=== PATIENT | female | born 1945 | race Caucasian/White ===

== ENCOUNTER 2018-01-04 08:15 | Emergency (ER) | payer MEDICARE, MEDICAID ==
--- NOTE | 2018-01-04 10:17 | RAD ---
LEFT WRIST THREE VIEWS: HISTORY: A 72-year-old female with a history of left wrist pain following a fall last night. FINDINGS: There is bony demineralization. Minimal degenerative and osteoarthrosis changes. No acute fracture. 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 POS: [facility]
--- NOTE | 2018-01-04 10:17 | RAD ---
LEFT KNEE FOUR VIEWS: HISTORY: A 72-year-old female with a history of left knee pain following a fall last night. COMPARISON: 09/20/2005 FINDINGS: Bone demineralization. No fracture or dislocation. Very mild degenerative changes. IMPRESSION: Mild degenerative changes with bone demineralization without acute fracture or dislocation. POS: [facility]
[2018-01-04] MEDS ORDERED: Acetaminophen 325 MG TAB ONE (10:18)
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
--- NOTE | 2018-01-04 11:37 | CT ---
NONCONTRAST CT CERVICAL SPINE: 01/04/2018 HISTORY: Trauma. The patient fell last night and now complains of neck pain and headache. COMPARISON: 09/20/2005 TECHNIQUE: Contiguous axial CT images are obtained through the cervical spine, from the skull base to the level of the T1 vertebral body. Sagittal and coronal reformatted images are provided. FINDINGS: There is normal alignment of the cervical spine. No fracture or subluxation is seen. Multilevel fac et degenerative changes are seen. Facet degenerative changes were also noted on the prior study that do appear mildly progressed. Prevertebral soft tissues are within normal limits. Vascular calcifications are seen in the carotid arteries. There is an 8 mm hypodense nodule in the right lobe of the thyroid gland. This was not seen on the s tudy in 2005. There is symmetric biapical pleural scarring present. IMPRESSION: 1. Hypodense nodule, right lobe of thyroid gland. Nonemergent thyroid ultrasound is suggested for f urther evaluation. 2. Prominent multilevel facet hypertrophic changes in the cervical spine, but no fracture or subluxa tion is seen. There is fusion of the left-sided facets at the C2-C3 level. POS: [facility]
== END 2018-01-04 10:31 | disposition home or self-care (01) ==
LOC: ERS 08:15
DX: S63.502A Unspecified sprain of left wrist, initial encounter (principal); S60.212A Contusion of left wrist, initial encounter; I10 Essential (primary) hypertension; F41.9 Anxiety disorder, unspecified; F32.9 Major depressive disorder, single episode, unspecified; F17.210 Nicotine dependence, cigarettes, uncomplicated; Z79.899 Other long term (current) drug therapy; W19.XXXA Unspecified fall, initial encounter; Y92.512 Supermarket, store or market as the place of occurrence of the external cause
CPT/HCPCS: 70450; 72125

== ENCOUNTER 2018-01-18 16:33 | Inpatient (IN) | payer MEDICARE, MEDICAID ==
[~2018-01-18 16:33] MED LIST: ISOVUE-370 76%-LOCM 1 ML ONE; Iopamidol 370 76% 50 ML VIAL FS ONE
[2018-01-18 17:32] LABS: #Basophils 0.1 thou/uL (0.0-0.2); #Eosinphils 0.2 thou/uL (0.0-0.7); #Lymphocytes 1.5 thou/uL (1.20-3.40); #Monocytes 0.7 thou/uL (0.11-0.59); #Neutrophils 8.6 thou/uL (1.40-6.50); %Basophils 0.5 % (0.0-1.0); %Eosinophils 1.9 % (0.0-10.0); %Lymphocytes 13.7 % (21.0-51.0); %Monocytes 6.6 % (0.0-10.0); %Neutrophils 77.3 % (42.0-75.0); Mean Corpuscular Hemoglobin 31.9 pg (27.0-31.0); Mean Corpuscular Volume 91.3 fL (78.0-98.0); Mean Platelet Volume 7.5 fL (7.4-10.4); Platelet Count 408 thou/uL (130-400); RBC Distribution Width 12.4 % (11.5-14.5); Red Blood Cell (RBC) Count 4.08 mill/uL (4.20-5.40); White Blood Cell (WBC) Count 11.1 thou/uL (4.8-10.8)
[2018-01-18 17:46] LABS: ALT (SGPT) 15 U/L (8-55); AST (SGOT) 29 U/L (5-34); Albumin 4.2 g/dL (3.4-4.8); Alkaline Phosphatase 94 U/L (40-150); Anion Gap 18 mmol/L (10-20); BUN (Urea Nitrogen) 25 mg/dL (9.8-20.1); Bilirubin, Total 0.7 mg/dL (0.2-1.2); Calc. Creatinine Clearance 0 mL/min (70-130); Calcium 10.2 mg/dL (7.8-10.44); Carbon Dioxide 22 mmol/L (23-31); Chloride 103 mmol/L (98-107); Estimated GFR-MDRD 72; Globulin 3.4 g/dL (2.4-3.5); Glucose 107 mg/dL (83-110); Lipase 16 U/L (8-78); Protein, Total 7.6 g/dL (6.0-8.3); Sodium 139 mmol/L (136-145)
[2018-01-18] MEDS ORDERED: Ondansetron HCl/PF 4 MG/2 ML Vial ONE (17:56)
[2018-01-18] MEDS ORDERED: Fentanyl 100 MCG/2 ML VIAL ONE ×2 (17:56→21:22)
--- NOTE | 2018-01-18 18:18 | RAD ---
FRONTAL RADIOGRAPH CHEST PORTABLE UPRIGHT: 01/18/18 COMPARISON: 10/16/15 HISTORY: Abdominal pain and constipation. FINDINGS: There is no pneumothorax, pleural fluid, lobar consolidation, or alveolar edema. Heart and mediastina l contours are stable. There is pulmonary hyperinflation with increased linear interstitial density n oted in both lungs. Findings suggesting air trapping and emphysematous changes suspected in the upper lobes suspicious for COPD in the proper clinical setting. Two questionable small nodules are seen overlying the right lung base measuring up to 5-6 mm. IMPRESSION: Incidental findings as detailed above. No lobar consolidation or alveolar edema. Interstitial promine nce and pulmonary hyperinflation suggests COPD in the proper clinical setting. POS: [facility]
--- NOTE | 2018-01-18 19:24 | CT ---
CT OF THE ABDOMEN AND PELVIS 01/18/18 COMPARISON: 12/15/14 HISTORY: Abdominal pain, history of diverticulitis, history of colon cancer. TECHNIQUE: Serial axial CT imaging is obtained at 5 mm intervals from lung bases through pubic symphysis with in travenous and/or oral contrast. Coronal reformatted imaging obtained. FINDINGS: Imaged lung bases demonstrate two new pulmonary nodules within the right lower lobe, measuring 1.1 cm anteriorly on image 2 and 8 mm laterally on image 4. There is no free intraperitoneal air. There is trace pericardial fluid. The gallbladder and the liver are unremarkable as is the spleen. The pancreas and adrenal glands are grossly unremarkable. There is bilateral renal cortical thinning. Punctate calcification in the upper pole of the left kidn ey may represent vascular calcification or renal stone disease. There are subcentimeter renal hypoden sities bilaterally, too small to characterize. There is a suture line associated with the colon in the mid right abdomen suggesting prior right melissa colectomy. There are dilated proximal fluid filled small bowel loops which extend from the abdomen in to the pelvis. There is a transition point within the midline lower anterior pelvis to decompress sma ll bowel suggesting small bowel obstruction. There is a soft tissue nodule within the mesentery on image 67 measuring 1.1 cm. There is an addition al probable nodule within the lower midline pelvic mesentery on image 73 measuring 1.4 cm. There is a mesenteric mass in the left upper quadrant on image 31 measuring 1.8 cm and there is a mesenteric ma ss on image 43 within the anterior mid abdomen to the left of midline measuring 3 cm. These mesenteri c lesions are highly concerning for mesenteric metastatic disease. There is extensive atherosclerotic calcification of the abdominal aorta and its branches. No retroper itoneal lymphadenopathy. Review of the osseous structures demonstrate diffuse demineralization. No di screte lytic or blastic bone lesion. There is an old fracture involving the inferior pubic ramus ante riorly on the right. There is multilevel lower lumbar spine facet hypertrophic change. IMPRESSION: Findings suggesting a high grade small bowel obstruction with transition point within the lower anter ior pelvis. There are mesenteric lesions mentioned above, concerning for metastatic disease. New pulm onary nodules in the right lower lobe are nonspecific but may also represent interval development of metastatic disease. Dr. Harris made aware 7:10 p.m., 01/18/18. Code CR POS: [facility]
[2018-01-18] MEDS ORDERED: Midazolam HCl 2 mg/2 ml Vial ONE (19:33)
--- NOTE | 2018-01-18 21:20 | RAD ---
FRONTAL RADIOGRAPH ABDOMEN 01/18/18 HISTORY: Evaluate nasogastric tube. FINDINGS: The patient is imaged in the supine position, limiting assessment for free intraperitoneal air. The l ower abdomen and pelvis are not imaged. There is contrast media within bilateral renal collecting sys tems. There is a nasogastric tube extending into the left upper abdomen, likely in the region of the proximal gastric body. Partially imaged dilated small bowel noted in left upper quadrant. IMPRESSION: Nasogastric tube as detailed above. POS: [facility]
[2018-01-18] MEDS ORDERED: Ondansetron HCl/PF 4 MG/2 ML Vial IVP PRN (21:26)
[2018-01-18] MEDS ORDERED: hydrALAZINE 20 MG/ML VIAL SLOW IVP PRN (21:26)
[2018-01-18] MEDS ORDERED: Mag-Al 1200 mg/1200 mg/30 ML UDCUP PO PRN (21:26)
[2018-01-18] MEDS ORDERED: Nitroglycerin 0.4 MG TAB (25 Tab Bottle) SL PRN (21:26)
[2018-01-18] MEDS ORDERED: Ketorolac Tromethamine 30 MG/ML VIAL IVP PRN (21:29)
[2018-01-18] MEDS: Sodium Chloride 0.9% 1,000 ML IV SCH (22:30)
[2018-01-18 22:44] VITALS: BMI 17.9
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
[2018-01-19 06:24] LABS: #Eosinphils 0.1 thou/uL (0.0-0.7); #Lymphocytes 1.1 thou/uL (1.20-3.40); #Monocytes 0.7 thou/uL (0.11-0.59); #Neutrophils 5.3 thou/uL (1.40-6.50); %Basophils 0.3 % (0.0-1.0); %Eosinophils 1.1 % (0.0-10.0); %Lymphocytes 15.3 % (21.0-51.0); %Monocytes 9.5 % (0.0-10.0); %Neutrophils 73.7 % (42.0-75.0); Hemoglobin 11.3 g/dL (12.0-16.0); Mean Corpuscular HGB CONC 34.8 g/dL (32.0-36.0); Mean Corpuscular Hemoglobin 31.7 pg (27.0-31.0); Mean Corpuscular Volume 91.1 fL (78.0-98.0); Mean Platelet Volume 7.6 fL (7.4-10.4); Platelet Count 323 thou/uL (130-400); RBC Distribution Width 12.2 % (11.5-14.5); Red Blood Cell (RBC) Count 3.57 mill/uL (4.20-5.40); White Blood Cell (WBC) Count 7.1 thou/uL (4.8-10.8)
[2018-01-19 06:39] LABS: Anion Gap 12 mmol/L (10-20); BUN (Urea Nitrogen) 22 mg/dL (9.8-20.1); Calc. Creatinine Clearance 68 mL/min (70-130); Calcium 8.7 mg/dL (7.8-10.44); Carbon Dioxide 25 mmol/L (23-31); Chloride 105 mmol/L (98-107); Estimated GFR-MDRD 88; Glucose 104 mg/dL (83-110); Potassium 3.6 mmol/L (3.5-5.1); Sodium 138 mmol/L (136-145)
[2018-01-19] MEDS: Acetaminophen 650 MG Suppository PR PRN ×2 (07:44→13:02)
[2018-01-19] MEDS ORDERED: Prevnar 13-Val Conj/PF 0.5 ML SYRINGE IM ONE (09:00)
[2018-01-19] MEDS: Ondansetron HCl/PF 4 MG/2 ML Vial IVP PRN (09:32)
[2018-01-19] MEDS: Enoxaparin Sodium 40 MG/0.4 ML SYRINGE SC SCH (09:36)
[2018-01-19] MEDS: Famotidine/PF 20 mg/2ml Vial SLOW IVP SCH ×2 (09:36→21:12)
[2018-01-19] MEDS: Calcium Carbonate 500 MG ChewTAB PO PRN (13:03)
[2018-01-19] MEDS ORDERED: MD-Gastroview 120 ML BOT ONE (15:07)
--- NOTE | 2018-01-19 15:51 | PDOC.PN ---
- Subjective Encounter Start Date: 01/19/18 Encounter Start Time: 08:00 Pt seen for followup re: bowel obstruction. Denies chest pain. Nausea+, vomiting+. No fevers or chills. - Objective MAR Reviewed: Yes Vital Signs & Weight: Vital Signs (12 hours) Temp Pulse Resp BP Pulse Ox 01/19/18 10:13 98.5 F 81 18 133/65 94 L 01/19/18 04:15 99.3 F 87 20 160/70 H 97 Weight Weight 121 lb 6 oz I&O: 01/18/18 01/19/18 01/20/18 06:59 06:59 06:59 Intake Total 637.5 Output Total 550 Balance 87.5 Result Diagrams: 01/19/18 05:54 01/19/18 05:54 Additional Labs: Labs reviewed by me Phys Exam - Physical Examination appears frail HEENT: sclera anicteric, oral pharynx no lesions, 2+ tonsils dry mucosae Neck: no nodes, no JVD, supple, full ROM Respiratory: no wheezing, no rales, no rhonchi, clear to auscultation bilateral Cardiovascular: RRR, no rub S1, S2 Gastrointestinal: soft, no distention mild diffuse tenderness, no guarding or rigidity; sluggish bowel sounds Neurological: moves all 4 limbs Psychiatric: normal affect Dx/Plan (1) Bowel obstruction Code(s): K56.609 - UNSP INTESTNL OBST, UNSP TO PARTIAL VERSUS COMPLETE OBST Status: Acute Comment: await SBFT series, continue NG to suction as needed. (2) HTN (hypertension) Code(s): I10 - ESSENTIAL (PRIMARY) HYPERTENSION Status: Chronic Comment: Monitor vital signs, titrate antihypertensives as needed. PRN IV hydralazine while pt is NPO. (3) Tobacco abuse Code(s): Z72.0 - TOBACCO USE Status: Chronic Comment: start nicotine replacement therapy (4) Pulmonary nodules Status: Chronic Comment: await oncology opinion, suspicious for mets from colon CA (5) H/O malignant neoplasm of colon Code(s): Z85.038 - PERSONAL HISTORY OF MALIGNANT NEOPLASM OF LARGE INTESTINE Status: Chronic - Plan * . Review of Systems - Review of Systems Constitutional: negative: fever, chills, sweats, weakness, malaise Respiratory: negative: Cough, Shortness of Breath, SOB with Excertion, Pleuritic Pain, Wheezing Cardiovascular: negative: chest pain, palpitations, orthopnea, paroxysmal nocturnal dyspnea, edema, light headedness Gastrointestinal: Nausea, Vomiting, Abdominal Pain, Constipation. negative: Diarrhea, Melena, Hematochezia Genitourinary: negative: Dysuria, Frequency, Incontinence, Hematuria, Retention Skin: negative: Rash, Lesions, Thaddeus, Bruising - Medications/Allergies Allergies/Adverse Reactions: Allergies Allergy/AdvReac Type Severity Reaction Status Date / Time codeine Allergy Severe Nausea Verified 02/28/16 10:12 celiac Allergy "can't eat Uncoded 02/28/16 10:12 gluten" Medications: Current Medications Acetaminophen (Tylenol) 650 mg ND Q4H PRN PRN Reason: Headache/Fever or Pain Last Admin: 01/19/18 13:02 Dose: 650 mg Acetaminophen (Tylenol) 650 mg PO Q4H PRN PRN Reason: Headache/Fever or Pain Al Hydroxide/Mg Hydroxide (Maalox) 30 ml PO Q6H PRN PRN Reason: Heartburn or Indigestion Calcium Carbonate (Tums) 1,000 mg PO Q4H PRN PRN Reason: Heartburn or Indigestion Last Admin: 01/19/18 13:03 Dose: 1,000 mg Enoxaparin Sodium (Lovenox) 40 mg SC 0900 [facility] Last Admin: 01/19/18 09:36 Dose: 40 mg Famotidine (Pepcid) 20 mg SLOW IVP Q12HR [facility] Last Admin: 01/19/18 09:36 Dose: 20 mg Hydralazine HCl (Apresoline) 10 mg SLOW IVP Q4H PRN PRN Reason: Systolic BP > 170 Sodium Chloride (Normal Saline 0.9%) 1,000 mls @ 75 mls/hr IV .[id number] [facility] Last Admin: 01/18/18 22:30 Dose: 1,000 mls Morphine Sulfate (Morphine) 2 mg SLOW IVP Q4H PRN PRN Reason: Moderate Pain (4-6) Last Admin: 01/19/18 13:46 Dose: 2 mg Nitroglycerin (Nitrostat) 0.4 mg SL Q5MIN PRN PRN Reason: Chest Pain Ondansetron HCl (Zofran) 4 mg IVP Q6H PRN PRN Reason: Nausea/Vomiting Last Admin: 01/19/18 09:32 Dose: 4 mg Sodium Chloride (Flush - Normal Saline) 10 ml IVF Q12HR [facility] Last Admin: 01/19/18 09:38 Dose: Not Given Sodium Chloride (Flush - Normal Saline) 10 ml IVF PRN PRN PRN Reason: Saline Flush Last Admin: 01/19/18 04:59 Dose: 10 ml
[2018-01-19] MEDS: Sodium Chloride 0.9% 1,000 ML IV SCH (17:00)
[2018-01-19] MEDS: Nicotine 14 MG PATCH TD SCH (17:45)
--- NOTE | 2018-01-19 18:13 | RAD ---
SMALL BOWEL FOLLOW THROUGH: Date: 01-19-18 Comparison: None. History: Small bowel obstruction. FINDINGS: Senior Telecommunications Engineer imaging demonstrates small volume residual contrast media within the colon. Nasogastric tube ex tends into left upper quadrant with side port near the gastroesophageal junction. Following the admin istration of contrast media into the patient's nasogastric tube, immediate imaging demonstrates contr ast media within the stomach and nondilated proximal small bowel. Similar findings are seen at 15 and 30 minutes. At 45 minutes and 1 hour, dilated distal small bowel loops are noted, measuring up to 3. 8 cm, extending into the midline pelvis. Latera imaging at 4 hours demonstrates contrast media extend ing into distal nondilated small bowel loops. Contrast media fills the colon by 6 hours. IMPRESSION: Findings suggesting a partial small bowel obstruction with transition point in the lower pelvis. Keyon mmend KUB on 01-20-18 for follow up. POS: [facility]
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
[2018-01-19] MEDS: Acetaminophen 325 MG TAB PO PRN (22:33)
[2018-01-20] MEDS: Acetaminophen 325 MG TAB PO PRN ×2 (02:05→14:02)
[2018-01-20] MEDS: Ondansetron HCl/PF 4 MG/2 ML Vial IVP PRN (06:19)
[2018-01-20] MEDS: Sodium Chloride 0.9% 1,000 ML IV SCH ×2 (07:42→16:47)
[2018-01-20] MEDS: Famotidine/PF 20 mg/2ml Vial SLOW IVP SCH ×2 (09:32→20:50)
[2018-01-20] MEDS: Enoxaparin Sodium 40 MG/0.4 ML SYRINGE SC SCH (09:32)
[2018-01-20] MEDS: traMADol HCl 50 MG TAB PO PRN ×3 (10:25→23:00)
--- NOTE | 2018-01-20 15:51 | CON ---
DATE OF CONSULTATION: 01/20/2018 REASON FOR CONSULTATION: Colon cancer. HISTORY OF PRESENT ILLNESS: Ms. Salvador is a 72-year-old female who was diagnosed with stage IIIB moderately differentiated adenocarcinoma of the ascending colon in 10/2014. She underwent a ri ght hemicolectomy with ileocolic anastomosis, sigmoid colon resection and colorectal anastomosis. Re section margins were free and 19 lymph nodes were negative. She began the [facility] regimen with l ow dose leucovorin and 5-FU. Unfortunately, it was discontinued after the first cycle of chemotherap y due to poor tolerance. She returned approximately 1 month later and was still weak and fatigued. Her weight was less than her prechemotherapy weight, so the patient elected not to continue chemo. S he has not been seen since that time. Over the past 2-3 days, she has been having lower abdominal pa in. She presented to the emergency room, a CT of the abdomen and pelvis showed 2 new pulmonary nodul es within the right lower lobe measuring 1.1 and 8 mm. She had a soft tissue nodule in the mesentery measuring 1.1 cm. There was another in the pelvic mesentery measuring 1.4 cm. There is a mesenteri c mass of the left upper quadrant measuring 1.8 cm and there was an anterior mid abdominal mesenteric mass measuring 3 cm. They were all highly suspicious for metastatic disease. She also had evidence of a high grade small-bowel obstruction. She had an NG tube placed. She did have a small bowel x-r ay with contrast. She also had 4 bowel movements after this procedure. The NG tube was removed and she is now on clear liquids. She is having pain at this time, but it was just medicated with pain me dicine. PAST MEDICAL HISTORY: 1. Stage IIIB colon cancer, status post hemicolectomy. 2. Gastroesophageal reflux. 3. Hypertension. 4. Celiac disease. PAST SURGICAL HISTORY: Hemicolectomy. ALLERGIES: VICODIN. HOME MEDICATIONS: 1. Amlodipine 5 mg daily. 2. Citalopram 10 mg daily. 3. Prilosec 40 mg daily. 4. MVI daily. FAMILY HISTORY: Daughter had colon cancer at the age of 55. Mom had breast cancer. SOCIAL HISTORY: Single, lives with her sister. Smokes half-a-pack of cigarettes daily. No alcohol or illicit drug use. REVIEW OF SYSTEMS: Twelve point review of systems is negative except for noted in HPI. PHYSICAL EXAMINATION: VITAL SIGNS: Temperature 99.1, pulse is 84, respiratory rate 18, blood pressure is 154/67. She is 9 7% on room air. GENERAL: Well-developed, well-nourished female in no acute distress. HEENT: Normocephalic, atraumatic. Pupils equal and reactive to light. She has poor dentition. She has no teeth. NECK: Supple. CARDIOVASCULAR: Regular rate and rhythm. LUNGS: Clear. ABDOMEN: Soft, nontender. Bowel sounds are hypoactive. EXTREMITIES: No clubbing, cyanosis or edema. SKIN: No rash. HEMATOLOGIC: No petechia or purpura. NEUROLOGIC: Nonfocal. PSYCHIATRIC: The patient is alert and oriented and appropriate. PERTINENT LABORATORY DATA AND X-RAYS: Current WBCs are 7.1, hemoglobin 11.3, hematocrit 32.5, platel et count 323,000. She has got 74% neutrophils, 15% lymphocytes. Sodium is 138, potassium 3.6, chlor michael 105, CO2 is 25, BUN is 22, creatinine 0.66, calcium is 8.7, bilirubin is 0.7, AST is 29, ALT is 1 5, alkaline phosphatase is 94. Serum total protein is 7.6, albumin 4.2, globulin 3.4, lipase is 16. ASSESSMENT: 1. Partial small-bowel obstruction, improving. 2. History of stage IIIB colon cancer with intolerance to chemo. 3. New mesenteric mass concerning for metastatic disease. DISCUSSION: The results of the CT scan were discussed with patient. She understands that this is li tiffani metastatic disease. She was intolerant to chemo in the past and is hesitant to have any again. She does agree to meet in the office with Dr. Mitchell to discuss further options. Thank you for the consult. We will follow her remotely.
[2018-01-20] MEDS: Nicotine 14 MG PATCH TD SCH (16:45)
--- NOTE | 2018-01-20 16:52 | PDOC.PN ---
- Subjective Encounter Start Date: 01/20/18 Encounter Start Time: 10:20 Pt seen for followup re: bowel obstruction. Had bowel movements yesterday after SBFT. Abdo pain still +, tolerating clear fluid diet. - Objective MAR Reviewed: Yes Vital Signs & Weight: Vital Signs (12 hours) Temp Pulse Pulse Pulse Resp BP BP 01/20/18 11:57 99.1 F 84 18 01/20/18 09:28 84 78 152/70 H 164/68 H 01/20/18 07:40 99.1 F 89 18 BP Pulse Ox 01/20/18 11:57 154/67 H 97 01/20/18 09:28 01/20/18 07:40 144/67 H 99 Weight Admit Weight 121 lb 6 oz Weight 121 lb 6 oz I&O: 01/19/18 01/20/18 01/21/18 06:59 06:59 06:59 Intake Total 637.5 2055 1200 Output Total 550 4 Balance 87.5 2051 1200 Result Diagrams: 01/19/18 05:54 01/19/18 05:54 Additional Labs: labs reviewed by me Phys Exam - Physical Examination Constitutional: NAD HEENT: moist MMs, sclera anicteric, oral pharynx no lesions, 2+ tonsils Neck: no nodes, no JVD, supple, full ROM Respiratory: no wheezing, no rales, no rhonchi, clear to auscultation bilateral Cardiovascular: RRR, no rub S1, s2 Gastrointestinal: soft, non-tender, no distention, positive bowel sounds Neurological: moves all 4 limbs Psychiatric: normal affect, A&O x 3 Dx/Plan (1) Bowel obstruction Code(s): K56.609 - UNSP INTESTNL OBST, UNSP TO PARTIAL VERSUS COMPLETE OBST Status: Acute Comment: Improving, on clear fluid diet (2) HTN (hypertension) Code(s): I10 - ESSENTIAL (PRIMARY) HYPERTENSION Status: Chronic Comment: resume home meds, continue PRN IV hydralazine (3) Tobacco abuse Code(s): Z72.0 - TOBACCO USE Status: Chronic Comment: patient declined nicotine replacement therapy (4) Pulmonary nodules Status: Chronic Comment: await oncology opinion (5) H/O malignant neoplasm of colon Code(s): Z85.038 - PERSONAL HISTORY OF MALIGNANT NEOPLASM OF LARGE INTESTINE Status: Chronic - Plan * . Review of Systems - Review of Systems Constitutional: negative: fever, chills, sweats, weakness, malaise Respiratory: negative: Cough, Shortness of Breath, SOB with Excertion, Pleuritic Pain, Wheezing Cardiovascular: negative: chest pain, palpitations, orthopnea, paroxysmal nocturnal dyspnea, edema, light headedness Gastrointestinal: Abdominal Pain. negative: Nausea, Vomiting, Diarrhea, Constipation, Melena, Hematochezia Genitourinary: negative: Dysuria, Frequency, Incontinence, Hematuria, Retention Skin: negative: Rash, Lesions, Thaddeus, Bruising - Medications/Allergies Allergies/Adverse Reactions: Allergies Allergy/AdvReac Type Severity Reaction Status Date / Time codeine Allergy Severe Nausea Verified 02/28/16 10:12 celiac Allergy "can't eat Uncoded 02/28/16 10:12 gluten" Medications: Current Medications Acetaminophen (Tylenol) 650 mg HI Q4H PRN PRN Reason: Headache/Fever or Pain Last Admin: 01/19/18 13:02 Dose: 650 mg Acetaminophen (Tylenol) 650 mg PO Q4H PRN PRN Reason: Headache/Fever or Pain Last Admin: 01/20/18 14:02 Dose: 650 mg Al Hydroxide/Mg Hydroxide (Maalox) 30 ml PO Q6H PRN PRN Reason: Heartburn or Indigestion Calcium Carbonate (Tums) 1,000 mg PO Q4H PRN PRN Reason: Heartburn or Indigestion Last Admin: 01/19/18 13:03 Dose: 1,000 mg Enoxaparin Sodium (Lovenox) 40 mg SC 0900 [facility] Last Admin: 01/20/18 09:32 Dose: 40 mg Famotidine (Pepcid) 20 mg SLOW IVP Q12HR [facility] Last Admin: 01/20/18 09:32 Dose: 20 mg Hydralazine HCl (Apresoline) 10 mg SLOW IVP Q4H PRN PRN Reason: Systolic BP > 170 Sodium Chloride (Normal Saline 0.9%) 1,000 mls @ 75 mls/hr IV .[id number] [facility] Last Admin: 01/20/18 16:47 Dose: 1,000 mls Morphine Sulfate (Morphine) 2 mg SLOW IVP Q4H PRN PRN Reason: Moderate Pain (4-6) Last Admin: 01/20/18 06:15 Dose: 2 mg Nicotine (Nicoderm Patch) 14 mg TD 1600 [facility] Last Admin: 01/20/18 16:45 Dose: Not Given Nitroglycerin (Nitrostat) 0.4 mg SL Q5MIN PRN PRN Reason: Chest Pain Ondansetron HCl (Zofran) 4 mg IVP Q6H PRN PRN Reason: Nausea/Vomiting Last Admin: 01/20/18 06:19 Dose: 4 mg Sodium Chloride (Flush - Normal Saline) 10 ml IVF Q12HR [facility] Last Admin: 01/20/18 09:40 Dose: 10 ml Sodium Chloride (Flush - Normal Saline) 10 ml IVF PRN PRN PRN Reason: Saline Flush Last Admin: 01/19/18 04:59 Dose: 10 ml Tramadol HCl (Ultram) 50 mg PO Q6H PRN PRN Reason: Pain Last Admin: 01/20/18 16:43 Dose: 50 mg
[2018-01-20] MEDS ORDERED: Promethazine HCl 25 MG/ML VIAL IM/IV PRN (16:56)
[2018-01-20] MEDS: Escitalopram Oxalate 10 mg Tablet PO SCH (20:50)
--- NOTE | 2018-01-21 02:50 | PRG ---
DATE OF SERVICE: 01/20/2018 SUBJECTIVE: Ms. Salvador is a patient we are seeing in consultation for suspected small-bowel obstructi on. Yesterday, she underwent an x-ray with a small bowel follow through, she has had multiple formed bowel movements after that, she is remaining afebrile and she tolerated a clear liquid diet overnigh t. This morning, she does complain of vague abdominal pain, but her exam was essentially unremarkabl e. The patient does report passing gas and has no nausea or vomiting. PHYSICAL EXAMINATION: VITAL SIGNS: Temperature 99.1, heart rate 89, blood pressure 144/67, respirations 18, oxygen saturat ion 99% on room air. GENERAL: The patient is resting in bed. She appears somewhat in discomfort when talking with the pa tient and she calms down. She appears much better, indicating there may be an anxiety component to t hink this morning. ABDOMEN: Again is soft, flat, nontender without peritoneal signs and has active bowel sounds. LABORATORY FINDINGS: White blood cell count 7.1, hemoglobin 11.3, hematocrit 32.5, platelets 323. S odium 138, potassium 3.6, chloride 105, CO2 of 25, BUN 22, creatinine 0.66, glucose 104. ASSESSMENT AND PLAN: 1. Partial small-bowel obstruction, resolved. 2. Abdominal pain. Plan will be to continue supportive care per guidance of the primary team and I believe they have augusto orozco consulted Oncology who the patient has already been under the care of . At this time, ther e are no surgical recommendations and we will sign off. We may be reconsulted as needed. The evalua tion and examination were done with Dr. Machuca this morning during rounds.
[2018-01-21] MEDS: traMADol HCl 50 MG TAB PO PRN ×2 (05:26→20:43)
[2018-01-21] MEDS: Sodium Chloride 0.9% 1,000 ML IV SCH (05:34)
[2018-01-21 06:26] LABS: #Eosinphils 0.2 thou/uL (0.0-0.7); #Lymphocytes 1.1 thou/uL (1.20-3.40); #Monocytes 0.6 thou/uL (0.11-0.59); #Neutrophils 2.2 thou/uL (1.40-6.50); %Basophils 0.6 % (0.0-1.0); %Lymphocytes 27.7 % (21.0-51.0); %Monocytes 14.6 % (0.0-10.0); %Neutrophils 53.1 % (42.0-75.0); Hemoglobin 10.7 g/dL (12.0-16.0); Mean Corpuscular HGB CONC 34.4 g/dL (32.0-36.0); Mean Corpuscular Hemoglobin 31.7 pg (27.0-31.0); Mean Corpuscular Volume 92.1 fL (78.0-98.0); Mean Platelet Volume 7.6 fL (7.4-10.4); Platelet Count 313 thou/uL (130-400); RBC Distribution Width 12.2 % (11.5-14.5); Red Blood Cell (RBC) Count 3.37 mill/uL (4.20-5.40); White Blood Cell (WBC) Count 4.1 thou/uL (4.8-10.8)
[2018-01-21 06:37] LABS: Anion Gap 11 mmol/L (10-20); BUN (Urea Nitrogen) 26 mg/dL (9.8-20.1); Calc. Creatinine Clearance 82 mL/min (70-130); Carbon Dioxide 22 mmol/L (23-31); Chloride 109 mmol/L (98-107); Estimated GFR-MDRD Greater than 90; Glucose 87 mg/dL (83-110); Sodium 139 mmol/L (136-145)
[2018-01-21] MEDS: Amlodipine 5 MG TAB PO SCH (08:31)
[2018-01-21] MEDS: Enoxaparin Sodium 40 MG/0.4 ML SYRINGE SC SCH (08:31)
[2018-01-21] MEDS: Multivitamin W/ Minerals 1 TAB PO SCH (08:31)
[2018-01-21] MEDS ORDERED: Ketorolac Tromethamine 30 MG/ML VIAL IVP SCH (09:15)
[2018-01-21] MEDS: Potassium Chloride 20 MEQ TAB PO SCH ×2 (13:28→17:04)
[2018-01-21] MEDS: Ketorolac Tromethamine 10 MG TAB PO SCH ×3 (13:32→23:33)
--- NOTE | 2018-01-21 15:18 | PDOC.PN ---
- Subjective Encounter Start Date: 01/21/18 Encounter Start Time: 12:00 Pt seen for followup re: bowel obstruction. Denies chest pain, shortness of breath, fevers or chills. has abdo pain. - Objective MAR Reviewed: Yes Vital Signs & Weight: Vital Signs (12 hours) Temp Pulse Resp BP Pulse Ox 01/21/18 11:38 98.6 F 72 16 123/55 L 97 01/21/18 08:00 98.6 F 72 16 01/21/18 07:21 98.7 F 77 16 135/72 94 L Weight Admit Weight 121 lb 6 oz Weight 121 lb 6 oz I&O: 01/20/18 01/21/18 01/22/18 06:59 06:59 06:59 Intake Total 2054 3559 Output Total Balance 2050 3559 Result Diagrams: 01/21/18 05:59 01/21/18 05:59 Additional Labs: labs reviewed by me Phys Exam - Physical Examination Constitutional: NAD HEENT: moist MMs Neck: supple Respiratory: clear to auscultation bilateral Cardiovascular: RRR Gastrointestinal: soft Neurological: moves all 4 limbs Psychiatric: normal affect Dx/Plan (1) Bowel obstruction Code(s): K56.609 - UNSP INTESTNL OBST, UNSP TO PARTIAL VERSUS COMPLETE OBST Status: Acute Comment: Improving, diet advanced (2) Hypokalemia Code(s): E87.6 - HYPOKALEMIA Status: Acute Comment: replace potassium (3) HTN (hypertension) Code(s): I10 - ESSENTIAL (PRIMARY) HYPERTENSION Status: Chronic Comment: controlled (4) Tobacco abuse Code(s): Z72.0 - TOBACCO USE Status: Chronic Comment: patient declined nicotine replacement therapy (5) Pulmonary nodules Status: Chronic Comment: to followup with oncology as outpatient (6) H/O malignant neoplasm of colon Code(s): Z85.038 - PERSONAL HISTORY OF MALIGNANT NEOPLASM OF LARGE INTESTINE Status: Chronic Comment: to followup with oncology as outpatient - Plan * . Review of Systems - Review of Systems Cardiovascular: negative: chest pain, palpitations, orthopnea, paroxysmal nocturnal dyspnea, edema, light headedness, other Gastrointestinal: Nausea, Abdominal Pain. negative: Vomiting, Diarrhea, Constipation, Melena, Hematochezia - Medications/Allergies Allergies/Adverse Reactions: Allergies Allergy/AdvReac Type Severity Reaction Status Date / Time codeine Allergy Severe Nausea Verified 02/28/16 10:12 celiac Allergy "can't eat Uncoded 02/28/16 10:12 gluten" Medications: Current Medications Acetaminophen (Tylenol) 650 mg SD Q4H PRN PRN Reason: Headache/Fever or Pain Last Admin: 01/19/18 13:02 Dose: 650 mg Acetaminophen (Tylenol) 650 mg PO Q4H PRN PRN Reason: Headache/Fever or Pain Last Admin: 01/20/18 14:02 Dose: 650 mg Al Hydroxide/Mg Hydroxide (Maalox) 30 ml PO Q6H PRN PRN Reason: Heartburn or Indigestion Amlodipine Besylate (Norvasc) 5 mg PO DAILY [facility] Last Admin: 01/21/18 08:31 Dose: 5 mg Calcium Carbonate (Tums) 1,000 mg PO Q4H PRN PRN Reason: Heartburn or Indigestion Last Admin: 01/19/18 13:03 Dose: 1,000 mg Enoxaparin Sodium (Lovenox) 40 mg SC 0900 [facility] Last Admin: 01/21/18 08:31 Dose: 40 mg Escitalopram Oxalate (Lexapro) 10 mg PO HS [facility] Last Admin: 01/20/18 20:50 Dose: 10 mg Hydralazine HCl (Apresoline) 10 mg SLOW IVP Q4H PRN PRN Reason: Systolic BP > 170 Iron/Minerals/Multivitamins (Theragran M) 1 tab PO DAILY [facility] Last Admin: 01/21/18 08:31 Dose: 1 tab Ketorolac Tromethamine (Toradol) 10 mg PO Q6HR [facility] Stop: 01/26/18 12:01 Last Admin: 01/21/18 13:32 Dose: 10 mg Nicotine (Nicoderm Patch) 14 mg TD 1600 [facility] Last Admin: 01/20/18 16:45 Dose: Not Given Nitroglycerin (Nitrostat) 0.4 mg SL Q5MIN PRN PRN Reason: Chest Pain Pantoprazole Sodium (Protonix) 40 mg PO 2100 [facility] Last Admin: 01/20/18 20:50 Dose: 40 mg Promethazine HCl (Phenergan) 25 mg IM/IV Q8H PRN PRN Reason: Nausea/Vomiting Sodium Chloride (Flush - Normal Saline) 10 ml IVF Q12HR [facility] Last Admin: 01/21/18 11:17 Dose: 10 ml Sodium Chloride (Flush - Normal Saline) 10 ml IVF PRN PRN PRN Reason: Saline Flush Last Admin: 01/19/18 04:59 Dose: 10 ml Tramadol HCl (Ultram) 50 mg PO Q6H PRN PRN Reason: Pain Last Admin: 01/21/18 05:26 Dose: 50 mg
[2018-01-21] MEDS: Nicotine 14 MG PATCH TD SCH (17:01)
[2018-01-21] MEDS ORDERED: Potassium Chloride 20 MEQ TAB PO SCH (17:30)
--- NOTE | 2018-01-21 18:18 | PRG ---
DATE OF SERVICE: 01/21/2018 SUBJECTIVE: Ms. Salvador is a 72-year-old woman who was admitted 3 days previously with acute partial s mall-bowel obstruction. She has had multiple loose bowel movements in the last 24 hours. This morni ng she denies any abdominal pain. She is tolerating clear liquid diet. OBJECTIVE: VITAL SIGNS: Includes blood pressure 135/72, pulse 77, respiratory rate is 16, temperature is 98.7 d egrees Fahrenheit, oxygen saturation 97% on room air. HEART: Reveals regular rate and rhythm, no murmurs or gallops auscultated. CHEST: Clear to auscultation bilaterally. Breathing is regular and unlabored. ABDOMEN: Soft, nontender, nondistended. She clearly has no rebound tenderness present. NEUROLOGIC: Reveals no focal deficits present. LABORATORY DATA: Today includes a CBC with 4100 white blood cells, hemoglobin and hematocrit of 10.7 and 31.0 respectively. Platelet count is 313,000. Metabolic profile: Sodium 139, potassium is 3.0 , chloride is 109, bicarbonate is 22, BUN 26, creatinine is 0.55, glucose is 87. IMPRESSION: 1. Resolving acute small-bowel obstruction. 2. Recurrent metastatic colon carcinoma. PLAN: 1. Advance diet as tolerated. 2. The patient may need to be reevaluated by Oncology with regard to recurrent colon CA especially g iven the markedly elevated CEA. There is no acute surgical indication for this patient at this time.
[2018-01-21] MEDS: Escitalopram Oxalate 10 mg Tablet PO SCH (20:44)
[2018-01-21] MEDS: Acetaminophen 325 MG TAB PO PRN (21:58)
[2018-01-22] MEDS: Ketorolac Tromethamine 10 MG TAB PO SCH ×4 (05:11→23:37)
[2018-01-22 06:21] LABS: Anion Gap 12 mmol/L (10-20); BUN (Urea Nitrogen) 21 mg/dL (9.8-20.1); Calc. Creatinine Clearance 82 mL/min (70-130); Carbon Dioxide 19 mmol/L (23-31); Chloride 110 mmol/L (98-107); Estimated GFR-MDRD Greater than 90; Glucose 83 mg/dL (83-110); Potassium 3.8 mmol/L (3.5-5.1); Sodium 137 mmol/L (136-145)
[2018-01-22 06:33] LABS: Hemoglobin 10.8 g/dL (12.0-16.0); Mean Corpuscular Hemoglobin 32.2 pg (27.0-31.0); Mean Corpuscular Volume 92.2 fL (78.0-98.0); Mean Platelet Volume 7.6 fL (7.4-10.4); Platelet Count 300 thou/uL (130-400); RBC Distribution Width 12.1 % (11.5-14.5); Red Blood Cell (RBC) Count 3.35 mill/uL (4.20-5.40); White Blood Cell (WBC) Count 4.2 thou/uL (4.8-10.8)
[2018-01-22 06:35] LABS: Band 20 % (5-11); Eosinophils 4 % (0-10); Lymphocytes 23 % (21-51); MDiff Complete? YES; Metamyelocyte 1 % (0-0); Monocytes 12 % (0-10); Neutrophil 40 % (42-75); PLT Morphology Comment Appears Adequate
[2018-01-22] MEDS: Multivitamin W/ Minerals 1 TAB PO SCH (08:30)
[2018-01-22] MEDS: Amlodipine 5 MG TAB PO SCH (08:30)
[2018-01-22] MEDS: Enoxaparin Sodium 40 MG/0.4 ML SYRINGE SC SCH (08:31)
[2018-01-22] MEDS: Calcium Carbonate 500 MG ChewTAB PO PRN (14:40)
[2018-01-22] MEDS ORDERED: Loperamide HCl 2 MG CAP PO SCH (14:45)
[2018-01-22] MEDS: Nicotine 14 MG PATCH TD SCH (16:02)
--- NOTE | 2018-01-22 16:49 | PDOC.PN ---
- Subjective Encounter Start Date: 01/22/18 Encounter Start Time: 09:20 Pt seen for followup re: diarrhea. Reports multiple bowel movements. Tolerating diet. Abdo pain better. - Objective MAR Reviewed: Yes Vital Signs & Weight: Vital Signs (12 hours) Temp Pulse Resp BP BP Pulse Ox 01/22/18 12:18 97.6 F 98 14 159/72 H 97 01/22/18 08:30 98.6 F 77 14 137/77 97 01/22/18 08:13 98.6 F 77 14 137/70 97 Weight Admit Weight 121 lb 6 oz Weight 121 lb 6 oz I&O: 01/21/18 01/22/18 01/23/18 06:59 06:59 06:59 Intake Total 3560 490 Balance 3560 490 Result Diagrams: 01/23/18 05:14 01/23/18 05:14 Additional Labs: Labs reviewed by me Phys Exam - Physical Examination Constitutional: NAD HEENT: moist MMs Neck: supple Respiratory: clear to auscultation bilateral Cardiovascular: RRR Gastrointestinal: soft Neurological: moves all 4 limbs Psychiatric: normal affect Dx/Plan (1) Diarrhea Code(s): R19.7 - DIARRHEA, UNSPECIFIED Status: Acute Comment: r/o C. diff, start Imodium if negative (2) Bowel obstruction Code(s): K56.609 - UNSP INTESTNL OBST, UNSP TO PARTIAL VERSUS COMPLETE OBST Status: Acute Comment: diet advanced (3) Hypokalemia Code(s): E87.6 - HYPOKALEMIA Status: Acute Comment: replace potassium (4) HTN (hypertension) Code(s): I10 - ESSENTIAL (PRIMARY) HYPERTENSION Status: Chronic Comment: controlled (5) Tobacco abuse Code(s): Z72.0 - TOBACCO USE Status: Chronic Comment: patient declined nicotine replacement therapy (6) Pulmonary nodules Status: Chronic Comment: to followup with oncology as outpatient (7) H/O malignant neoplasm of colon Code(s): Z85.038 - PERSONAL HISTORY OF MALIGNANT NEOPLASM OF LARGE INTESTINE Status: Chronic Comment: to followup with oncology as outpatient - Plan * . Review of Systems - Review of Systems Cardiovascular: negative: chest pain, palpitations, orthopnea, paroxysmal nocturnal dyspnea, edema, light headedness Gastrointestinal: Diarrhea. negative: Nausea, Vomiting, Abdominal Pain, Constipation, Melena, Hematochezia - Medications/Allergies Allergies/Adverse Reactions: Allergies Allergy/AdvReac Type Severity Reaction Status Date / Time codeine Allergy Severe Nausea Verified 02/28/16 10:12 celiac Allergy "can't eat Uncoded 02/28/16 10:12 gluten" Medications: Current Medications Acetaminophen (Tylenol) 650 mg SC Q4H PRN PRN Reason: Headache/Fever or Pain Last Admin: 01/19/18 13:02 Dose: 650 mg Acetaminophen (Tylenol) 650 mg PO Q4H PRN PRN Reason: Headache/Fever or Pain Last Admin: 01/21/18 21:58 Dose: 650 mg Al Hydroxide/Mg Hydroxide (Maalox) 30 ml PO Q6H PRN PRN Reason: Heartburn or Indigestion Amlodipine Besylate (Norvasc) 5 mg PO DAILY [facility] Last Admin: 01/22/18 08:30 Dose: 5 mg Calcium Carbonate (Tums) 1,000 mg PO Q4H PRN PRN Reason: Heartburn or Indigestion Last Admin: 01/22/18 14:40 Dose: 1,000 mg Enoxaparin Sodium (Lovenox) 40 mg SC 0900 [facility] Last Admin: 01/22/18 08:31 Dose: 40 mg Escitalopram Oxalate (Lexapro) 10 mg PO HS [facility] Last Admin: 01/21/18 20:44 Dose: 10 mg Hydralazine HCl (Apresoline) 10 mg SLOW IVP Q4H PRN PRN Reason: Systolic BP > 170 Iron/Minerals/Multivitamins (Theragran M) 1 tab PO DAILY [facility] Last Admin: 01/22/18 08:30 Dose: 1 tab Ketorolac Tromethamine (Toradol) 10 mg PO Q6HR [facility] Stop: 01/26/18 12:01 Last Admin: 01/22/18 12:26 Dose: 10 mg Loperamide HCl (Imodium) 4 mg PO ONE [facility] Stop: 01/22/18 21:00 Last Admin: 01/22/18 16:02 Dose: 4 mg Loperamide HCl (Imodium) 2 mg PO PRN PRN PRN Reason: Diarrhea/Loose Stools Nicotine (Nicoderm Patch) 14 mg TD 1600 [facility] Last Admin: 01/22/18 16:02 Dose: Not Given Nitroglycerin (Nitrostat) 0.4 mg SL Q5MIN PRN PRN Reason: Chest Pain Pantoprazole Sodium (Protonix) 40 mg PO 2100 [facility] Last Admin: 01/21/18 20:44 Dose: 40 mg Promethazine HCl (Phenergan) 25 mg IM/IV Q8H PRN PRN Reason: Nausea/Vomiting Last Admin: 01/21/18 21:59 Dose: 25 mg Sodium Chloride (Flush - Normal Saline) 10 ml IVF Q12HR [facility] Last Admin: 01/22/18 12:26 Dose: 10 ml Sodium Chloride (Flush - Normal Saline) 10 ml IVF PRN PRN PRN Reason: Saline Flush Last Admin: 01/19/18 04:59 Dose: 10 ml Tramadol HCl (Ultram) 50 mg PO Q6H PRN PRN Reason: Pain Last Admin: 01/21/18 20:43 Dose: 50 mg
[2018-01-22] MEDS: Loperamide HCl 2 MG CAP PO PRN (18:58)
[2018-01-22] MEDS ORDERED: Saccharomyces boulardii 250 MG CAP PO SCH (19:00)
[2018-01-22] MEDS: traMADol HCl 50 MG TAB PO PRN (20:17)
[2018-01-22] MEDS: Escitalopram Oxalate 10 mg Tablet PO SCH (20:25)
[2018-01-22] MEDS: Acetaminophen 325 MG TAB PO PRN (22:51)
[2018-01-22 23:12] LABS: Bilirubin Negative (Negative); Blood, Urine Trace (Negative); Clarity CLOUDY (Clear); Glucose, Urine (Dipstick) Negative (Negative); Leukocyte Small (Negative); Nitrite Positive (Negative); Protein, Urine (Dipstick) Negative (Neg-Trace); Specific Gravity, Urine 1.013 (1.002-1.036); Urobilinogen 0.2 mg/dL (0.2-1.0)
[2018-01-22 23:13] LABS: Bacteria/HPF 4+ HPF (None Seen); Hyaline Casts/LPF 7-10 HYALINE CAST LPF (0-3 Hyaline); Pathc Cast-AUWi Flag 0.58 (0-2.49); RBC/HPF 0-3 HPF (0-3); Squamous Epithelial 0-3 HPF (0-3); WBC/HPF 21-50 HPF (0-3)
[2018-01-23 05:51] LABS: Anion Gap 11 mmol/L (10-20); BUN (Urea Nitrogen) 21 mg/dL (9.8-20.1); Calc. Creatinine Clearance 71 mL/min (70-130); Calcium 8.7 mg/dL (7.8-10.44); Carbon Dioxide 22 mmol/L (23-31); Chloride 109 mmol/L (98-107); Estimated GFR-MDRD Greater than 90; Glucose 97 mg/dL (83-110); Potassium 3.8 mmol/L (3.5-5.1); Sodium 138 mmol/L (136-145)
[2018-01-23] MEDS: Ketorolac Tromethamine 10 MG TAB PO SCH ×2 (06:02→12:46)
[2018-01-23 06:20] LABS: Band 45 % (5-11); Eosinophils 5 % (0-10); Hemoglobin 11.5 g/dL (12.0-16.0); Lymphocytes 25 % (21-51); MDiff Complete? YES; Mean Corpuscular HGB CONC 35.1 g/dL (32.0-36.0); Mean Corpuscular Hemoglobin 31.9 pg (27.0-31.0); Mean Corpuscular Volume 90.8 fL (78.0-98.0); Mean Platelet Volume 7.2 fL (7.4-10.4); Monocytes 8 % (0-10); Myelocyte 1 % (0-0); Neutrophil 14 % (42-75); PLT Morphology Comment Appears Adequate; Platelet Count 366 thou/uL (130-400); RBC Distribution Width 12.2 % (11.5-14.5); RBC Morphology Normal; Reactive Lymphocytes 2 % (0-10); Red Blood Cell (RBC) Count 3.62 mill/uL (4.20-5.40); White Blood Cell (WBC) Count 6.4 thou/uL (4.8-10.8)
[2018-01-23] MEDS: Amlodipine 5 MG TAB PO SCH (08:19)
[2018-01-23] MEDS: Enoxaparin Sodium 40 MG/0.4 ML SYRINGE SC SCH (08:20)
[2018-01-23] MEDS: Multivitamin W/ Minerals 1 TAB PO SCH (08:20)
[2018-01-23] MEDS ORDERED: Saccharomyces boulardii 250 MG CAP PO SCH (09:00)
[2018-01-23] MEDS: traMADol HCl 50 MG TAB PO PRN (09:21)
[2018-01-23] MEDS: Loperamide HCl 2 MG CAP PO PRN (09:24)
[2018-01-23 11:30] VITALS: TEMP 98.8
--- NOTE | 2018-01-23 12:13 | DIS ---
DATE OF ADMISSION: 01/18/2018 DATE OF DISCHARGE: 01/23/2018 PRIMARY CARE PROVIDER: Dr. Naya Ho. ADMITTING DIAGNOSES: 1. Small-bowel obstruction. 2. Mesenteric lesions concerning for metastatic disease. 3. Pulmonary nodules in the right lower lobe, nonspecific, but may also represent interval developme nt of metastatic disease. CONSULTATIONS DURING THIS HOSPITALIZATION: Oncology, Dr. Mitchell and General Surgery, Dr. Vidal de leon. CONDITION OF PATIENT ON THE DAY OF DISCHARGE: Stable. I assessed Ms. Salvador on the day of discharge. She denies any chest pain or shortness of breath. Diarrhea has resolved. Vital signs are stable. S1 and S2 are heard, regular. Lungs are clear to auscultation bilaterally. DISCHARGE MEDICATIONS: Amlodipine 5 mg daily, escitalopram 10 mg at bedtime, omeprazole 40 mg daily, multivitamins 1 tablet daily. HOSPITAL COURSE: Ms. Salvador is a pleasant 72-year-old lady who was admitted to [facility] on 01/18/2018 for small-bowel obstruction. Please refer to Dr. Mary's history and phy sical note dated 01/19/2018 for further details. She was seen by General Surgery Service. She had a small bowel follow-through study on 01/19/2018, which showed findings suggesting a partial small-bow el obstruction with transition point in the lower pelvis. Following the study, she started having yuliana wel movements. She was started on a diet, which was gradually advanced. On 01/22/2018, stool was se nt for Clostridium difficile test. It was antigen and toxin negative. She was started on Imodium wi th resolution of diarrhea. She was also seen by Medical Oncology Service for worsening metastatic disease. She will be followed up in Oncology Clinic on 01/31/2018 at 11:30 a.m. She is also advised to follow up with her primary care provider. Many thanks for allowing me to participate in your patient's care. Please feel free to contact me wi th any questions or concerns. On the day of discharge, she has white count 6,400, hemoglobin 11.5, platelet count 366,000, normal s odium, normal potassium, and creatinine of 0.63. Her carcinoembryonic antigen level during this hosp italization was 108.16. DISCHARGE DESTINATION: Home. TOTAL AMOUNT OF TIME SPENT COORDINATING THIS DISCHARGE: 33 minutes.
[2018-01-23 14:34] VITALS: BP 123/67
== END 2018-01-23 13:38 | disposition home or self-care (01) | DRG 374 ==
LOC: ERS 16:33 → OBSVTOIN 21:15 → SURG A 21:15
PROVIDERS: ADMIT Internal Medicine; ATTEND Internal Medicine
PROC: 0BP1XDZ Removal of Intraluminal Device from Trachea, External Approach (ICD-10-PCS; principal; 2018-01-19)
DX: C78.6 Secondary malignant neoplasm of retroperitoneum and peritoneum (principal); E43 Unspecified severe protein-calorie malnutrition; Z68.1 Body mass index [BMI] 19.9 or less, adult; C78.5 Secondary malignant neoplasm of large intestine and rectum; R91.8 Other nonspecific abnormal finding of lung field; R19.7 Diarrhea, unspecified; Z90.49 Acquired absence of other specified parts of digestive tract; K21.9 Gastro-esophageal reflux disease without esophagitis; I10 Essential (primary) hypertension; Z88.6 Allergy status to analgesic agent; Z92.21 Personal history of antineoplastic chemotherapy; Z98.0 Intestinal bypass and anastomosis status; F17.210 Nicotine dependence, cigarettes, uncomplicated; Z85.038 Personal history of other malignant neoplasm of large intestine; E87.6 Hypokalemia
CPT/HCPCS: 36415; 71045; 74177; 74250; 80048; 80053; 81001; 82378; 83690; 85025; 87324; 87449; 93005; 96361; 96374; 96375; 96376; A4216; G8978-GP-CJ; G8979-GP-CH; G8987-GO-CK; G8988-GO-CJ; J1650; J1885; J2250; J2270; J2405; J2550; J3010; S0028

== ENCOUNTER 2018-04-03 12:10 | Day surgery (SDC) | payer MEDICARE ==
[2018-04-03] MEDS ORDERED: diphenhydrAMINE 25 MG CAP PO PRN (12:24)
[2018-04-03] MEDS ORDERED: Acetaminophen 500 MG TAB PO SCH (12:30)
[2018-04-03] MEDS ORDERED: BEVACIZUMAB IVPB SCH (12:30)
[2018-04-03] MEDS ORDERED: FLUOROURACIL IVPB SCH (12:30)
[2018-04-03] MEDS ORDERED: SODIUM CHLORIDE 0.9% IVPB SCH ×3 (12:30)
[2018-04-03] MEDS ORDERED: LEUCOVORIN CALCIUM IVPB SCH (12:30)
[2018-04-03] MEDS ORDERED: Sodium Chloride 0.9% 20 ML ONE (15:24)
[2018-04-03 16:24] VITALS: BP 138/63; TEMP 98.5
== END 2018-04-03 16:35 | disposition home or self-care (01) ==
LOC: ONC/OP 12:10
PROVIDERS: ATTEND Internal Medicine Medical Oncology
DX: Z51.11 Encounter for antineoplastic chemotherapy (principal); C18.3 Malignant neoplasm of hepatic flexure; Z88.5 Allergy status to narcotic agent
CPT/HCPCS: 36415; 80053; 82248; 83615; 84100; 84550; 96367; 96413; 96417; J0640; J7050; J9035; J9190

== ENCOUNTER 2018-04-10 12:12 | Day surgery (SDC) | payer MEDICARE ==
[2018-04-10] MEDS ORDERED: Sodium Chloride 0.9% 30 ML ONE (12:42)
[2018-04-10] MEDS ORDERED: FLUOROURACIL IVPB SCH (12:45)
[2018-04-10] MEDS ORDERED: SODIUM CHLORIDE 0.9% IVPB SCH ×2 (12:45)
[2018-04-10] MEDS ORDERED: LEUCOVORIN CALCIUM IVPB SCH (12:45)
[2018-04-10 13:13] VITALS: BP 131/60; TEMP 98.6
== END 2018-04-10 15:15 | disposition home or self-care (01) ==
LOC: ONC/OP 12:12
PROVIDERS: ATTEND Internal Medicine Medical Oncology
DX: Z51.11 Encounter for antineoplastic chemotherapy (principal); C18.3 Malignant neoplasm of hepatic flexure; Z88.5 Allergy status to narcotic agent
CPT/HCPCS: 96367; 96413; J0640; J7050; J9190

== ENCOUNTER 2018-04-24 11:20 | Day surgery (SDC) | payer MEDICARE ==
[2018-04-24] MEDS ORDERED: BEVACIZUMAB IVPB SCH ×2 (11:45→12:00)
[2018-04-24] MEDS ORDERED: Sodium Chloride 0.9% 30 ML ONE (11:45)
[2018-04-24] MEDS ORDERED: SODIUM CHLORIDE 0.9% IVPB SCH ×3 (11:45→12:00)
[2018-04-24] MEDS ORDERED: FLUOROURACIL IVPB SCH (11:45)
[2018-04-24 11:56] VITALS: BP 177/79
[2018-04-24 12:02] VITALS: TEMP 98.4
[2018-04-24] MEDS: SODIUM CHLORIDE 0.9% IVPB SCH ×3 (13:24→14:21)
[2018-04-24] MEDS: LEUCOVORIN CALCIUM IVPB SCH ×3 (13:24→14:21)
== END 2018-04-24 15:49 | disposition home or self-care (01) ==
LOC: ONC/OP 11:20
PROVIDERS: ATTEND Internal Medicine Medical Oncology
DX: Z51.11 Encounter for antineoplastic chemotherapy (principal); C18.3 Malignant neoplasm of hepatic flexure; Z88.5 Allergy status to narcotic agent
CPT/HCPCS: 96413; 96417; J0640; J7050; J9035; J9190

== ENCOUNTER 2018-05-08 11:05 | Day surgery (SDC) | payer MEDICARE ==
[2018-05-08] MEDS ORDERED: Sodium Chloride 0.9% 20 ML ONE (12:00)
[2018-05-08 13:17] VITALS: BP 145/65; TEMP 98.3
[2018-05-08] MEDS ORDERED: LEUCOVORIN CALCIUM IVPB SCH (13:45)
[2018-05-08] MEDS ORDERED: SODIUM CHLORIDE 0.9% IVPB SCH ×2 (13:45)
[2018-05-08] MEDS ORDERED: FLUOROURACIL IVPB SCH (13:45)
== END 2018-05-08 19:43 | disposition home or self-care (01) ==
LOC: ONC/OP 11:05
PROVIDERS: ATTEND Internal Medicine Medical Oncology
DX: Z51.11 Encounter for antineoplastic chemotherapy (principal); C18.3 Malignant neoplasm of hepatic flexure; Z88.5 Allergy status to narcotic agent; K21.9 Gastro-esophageal reflux disease without esophagitis; I10 Essential (primary) hypertension; F17.200 Nicotine dependence, unspecified, uncomplicated; Z79.899 Other long term (current) drug therapy
CPT/HCPCS: 36415; 80053; 82248; 83615; 84100; 84550; 96367; 96413; J0640; J7050; J9190

== ENCOUNTER 2018-05-15 10:46 | Day surgery (SDC) | payer MEDICARE ==
[2018-05-15] MEDS ORDERED: FLUOROURACIL IVPB SCH (11:15)
[2018-05-15] MEDS ORDERED: BEVACIZUMAB IVPB SCH ×2 (11:15→12:15)
[2018-05-15] MEDS ORDERED: SODIUM CHLORIDE 0.9% IVPB SCH ×4 (11:15→12:15)
[2018-05-15] MEDS ORDERED: LEUCOVORIN CALCIUM IVPB SCH (11:15)
[2018-05-15 11:43] VITALS: BP 140/71; TEMP 97.4
[2018-05-15 11:43] LABS: #Eosinphils 0.1 thou/uL (0.0-0.7); #Lymphocytes 1.9 thou/uL (1.20-3.40); #Monocytes 0.4 thou/uL (0.11-0.59); #Neutrophils 4.9 thou/uL (1.40-6.50); %Basophils 0.4 % (0.0-1.0); %Eosinophils 1.6 % (0.0-10.0); %Lymphocytes 25.9 % (21.0-51.0); %Monocytes 5.6 % (0.0-10.0); %Neutrophils 66.6 % (42.0-75.0); Hemoglobin 13.2 g/dL (12.0-16.0); Mean Corpuscular HGB CONC 34.3 g/dL (32.0-36.0); Mean Corpuscular Hemoglobin 32.1 pg (27.0-31.0); Mean Corpuscular Volume 93.4 fL (78.0-98.0); Mean Platelet Volume 8.5 fL (7.4-10.4); Platelet Count 387 thou/uL (130-400); RBC Distribution Width 13.8 % (11.5-14.5); White Blood Cell (WBC) Count 7.3 thou/uL (4.8-10.8)
[2018-05-15 13:57] LABS: ALT (SGPT) Less than 7 U/L (8-55); AST (SGOT) 13 U/L (5-34); Albumin 3.6 g/dL (3.4-4.8); Alkaline Phosphatase 80 U/L (40-150); Anion Gap 8 mmol/L (10-20); BUN (Urea Nitrogen) 17 mg/dL (9.8-20.1); Bilirubin, Total 0.3 mg/dL (0.2-1.2); Calc. Creatinine Clearance 68 mL/min (70-130); Calcium 9.4 mg/dL (7.8-10.44); Carbon Dioxide 28 mmol/L (23-31); Chloride 108 mmol/L (98-107); Estimated GFR-MDRD Greater than 90; Globulin 3.2 g/dL (2.4-3.5); Glucose 93 mg/dL (83-110); LDH 169 U/L (125-220); Potassium 3.9 mmol/L (3.5-5.1); Protein, Total 6.8 g/dL (6.0-8.3); Sodium 140 mmol/L (136-145); Uric Acid 3.7 mg/dL (2.6-6.0)
== END 2018-05-15 18:02 | disposition home or self-care (01) ==
LOC: ONC/OP 10:46
PROVIDERS: ATTEND Internal Medicine Medical Oncology
DX: Z51.11 Encounter for antineoplastic chemotherapy (principal); C18.3 Malignant neoplasm of hepatic flexure; Z88.8 Allergy status to other drugs, medicaments and biological substances; Z91.041 Radiographic dye allergy status
CPT/HCPCS: 36415; 80053; 83615; 84550; 85025; 96367; 96413; 96417; J0640; J7050; J9035; J9190

== ENCOUNTER 2018-05-29 09:49 | Day surgery (SDC) | payer MEDICARE ==
[2018-05-29] MEDS ORDERED: FLUOROURACIL IVPB SCH (10:00)
[2018-05-29] MEDS ORDERED: SODIUM CHLORIDE 0.9% IVPB SCH ×3 (10:00→10:15)
[2018-05-29] MEDS ORDERED: LEUCOVORIN CALCIUM IVPB SCH (10:00)
[2018-05-29] MEDS ORDERED: Sodium Chloride 0.9% 30 ML ONE (10:06)
[2018-05-29] MEDS ORDERED: BEVACIZUMAB IVPB SCH (10:15)
[2018-05-29 10:43] VITALS: BP 158/83; TEMP 97.4
== END 2018-05-29 12:40 | disposition home or self-care (01) ==
LOC: ONC/OP 09:49
PROVIDERS: ATTEND Internal Medicine Medical Oncology
DX: Z51.11 Encounter for antineoplastic chemotherapy (principal); C18.3 Malignant neoplasm of hepatic flexure; K21.9 Gastro-esophageal reflux disease without esophagitis; I10 Essential (primary) hypertension; Z79.899 Other long term (current) drug therapy; Z88.8 Allergy status to other drugs, medicaments and biological substances; Z91.041 Radiographic dye allergy status
CPT/HCPCS: 36415; 82378; 96367; 96413; 96417; J0640; J7050; J9035; J9190

== ENCOUNTER 2018-06-19 10:10 | Day surgery (SDC) | payer MEDICARE ==
[2018-06-19] MEDS ORDERED: Sodium Chloride 0.9% 30 ML ONE (10:16)
[2018-06-19] MEDS ORDERED: BEVACIZUMAB IVPB SCH (10:30)
[2018-06-19] MEDS ORDERED: LEUCOVORIN CALCIUM IVPB SCH (10:30)
[2018-06-19] MEDS ORDERED: SODIUM CHLORIDE 0.9% IVPB SCH ×3 (10:30)
[2018-06-19] MEDS ORDERED: FLUOROURACIL IVPB SCH (10:30)
[2018-06-19 12:51] VITALS: BP 146/69; TEMP 97.6
== END 2018-06-19 17:23 | disposition home or self-care (01) ==
LOC: ONC/OP 10:10
PROVIDERS: ATTEND Internal Medicine Medical Oncology
DX: Z51.11 Encounter for antineoplastic chemotherapy (principal); C18.3 Malignant neoplasm of hepatic flexure; K21.9 Gastro-esophageal reflux disease without esophagitis; I10 Essential (primary) hypertension; K90.0 Celiac disease; Z79.899 Other long term (current) drug therapy; Z88.5 Allergy status to narcotic agent; Z91.018 Allergy to other foods
CPT/HCPCS: 36415; 80053; 82248; 83615; 84100; 84550; 96367; 96413; 96417; J0640; J7050; J9035; J9190

== ENCOUNTER 2018-06-26 11:24 | Day surgery (SDC) | payer MEDICARE ==
[2018-06-26] MEDS ORDERED: Sodium Chloride 0.9% 20 ML ONE (11:27)
[2018-06-26 12:06] VITALS: BP 122/67; TEMP 98.1
[2018-06-26] MEDS ORDERED: SODIUM CHLORIDE 0.9% IVPB SCH ×2 (12:30)
[2018-06-26] MEDS ORDERED: LEUCOVORIN CALCIUM IVPB SCH (12:30)
[2018-06-26] MEDS ORDERED: FLUOROURACIL IVPB SCH (12:30)
== END 2018-06-26 13:18 | disposition home or self-care (01) ==
LOC: ONC/OP 11:24
PROVIDERS: ATTEND Internal Medicine Medical Oncology
DX: Z51.11 Encounter for antineoplastic chemotherapy (principal); C18.1 Malignant neoplasm of appendix; K90.0 Celiac disease; F17.210 Nicotine dependence, cigarettes, uncomplicated; K21.9 Gastro-esophageal reflux disease without esophagitis; I10 Essential (primary) hypertension; Z79.899 Other long term (current) drug therapy; Z88.5 Allergy status to narcotic agent
CPT/HCPCS: 96367; 96413; J0640; J7050; J9190

== ENCOUNTER 2018-07-03 11:30 | Day surgery (SDC) | payer MEDICARE, MEDICAID ==
[2018-07-03] MEDS ORDERED: SODIUM CHLORIDE 0.9% IVPB SCH ×3 (12:00→12:15)
[2018-07-03] MEDS ORDERED: FLUOROURACIL IVPB SCH (12:00)
[2018-07-03] MEDS ORDERED: BEVACIZUMAB IVPB SCH (12:15)
[2018-07-03] MEDS ORDERED: LEUCOVORIN CALCIUM IVPB SCH (12:15)
[2018-07-03 12:30] VITALS: BP 181/77; TEMP 98.1
[2018-07-03] MEDS ORDERED: Sodium Chloride 0.9% 20 ML ONE (13:09)
== END 2018-07-03 13:59 | disposition home or self-care (01) ==
LOC: ONC/OP 11:30
PROVIDERS: ATTEND Internal Medicine Medical Oncology
DX: Z51.11 Encounter for antineoplastic chemotherapy (principal); C18.1 Malignant neoplasm of appendix; K90.0 Celiac disease; K21.9 Gastro-esophageal reflux disease without esophagitis; F17.200 Nicotine dependence, unspecified, uncomplicated; I10 Essential (primary) hypertension; Z88.5 Allergy status to narcotic agent; Z79.899 Other long term (current) drug therapy; Z90.49 Acquired absence of other specified parts of digestive tract
CPT/HCPCS: 36415; 82378; 96367; 96413; 96417; J0640; J7050; J9035; J9190

== ENCOUNTER 2018-07-08 08:42 | Outpatient (CLI) | payer MEDICARE, MEDICAID ==
--- NOTE | 2018-07-08 11:09 | CT ---
CT CHEST AND ABDOMEN AND PELVIS WITH IV CONTRAST: INDICATIONS: History of colon cancer with metastatic disease to the lungs, mesentery, and abdomen, with history of prior hysterectomy, appendectomy, and tumor removal. COMPARISON: Prior CTA thorax dated 10/16/[address] abdomen and pelvis dated 01/18/2018. CONTRAST: Isovue-370 70 mL was utilized. FINDINGS: CHEST: There is worsening pulmonary metastatic disease with more numerous pulmonary nodules seen throughout both lower lobes when compared to the recent CT of the abdomen and pelvis dated 01/18/2018. The 8 mm pulmonary nodule is relatively stable in size, in the right lower lobe, on image 55 of serie s 3. There was a 1 cm pulmonary nodule within the right lower lobe on image 66 of series 3, slightly smaller, measuring 4.8 mm. A 7 mm pulmonary nodule in the right posteromedial lower lobe is slightl y larger, measuring 6.7 mm. There is a 5.3 mm nodule within the posteromedial aspect of the left low er lobe, on image 63 of series 6, slightly larger than on the prior exam, measuring 4 mm. The larges t pulmonary nodule seen within the posteromedial right lower lobe, not seen on the comparison examina tion, measuring 1 cm, on image 45 of series 3. There is a mild amount of fluid in the pericardial sac. There are scattered vascular calcifications of the coronary arteries and thoracic aorta. ABDOMEN AND PELVIS: There is a small hiatal hernia. The liver, spleen, pancreas, and adrenal glands are normal appearing . Bilateral renal cortical thinning and renal cysts are present. There is right-sided hydronephrosi s, which is new, and transitions to a right pelvis mass, measuring 5.6 x 6.6 cm. This pelvic mass is in continuity with the right gonadal veins and is suspicious for possible ovarian malignancy. There is post surgical change of a right hemicolectomy. Mesenteric mass seen left of midline in the upper abdomen on image 88 of series 2 is slightly smaller than on the comparison examination, when it measured 3 cm; it now measures 2.1 cm. Additional mesen teric mass previously measuring 1.7 cm has gradually enlarged, now measuring 2.7 cm on image 80 of se fredis 2. Diffuse osteopenia is present. Healed deformity of the right pubic body is stable. Scattered degene rative and osteoarthritic change is present. IMPRESSION: 1. Findings of mixed response to therapy. There is worsening pulmonary metastatic disease, as well as an enlarging mesenteric mass within the upper abdomen. The more prominent mesenteric mass seen on the prior examination is slightly smaller and may have reflected partial surgical resection. 2. There is an enlarging right-sided pelvic mass, inducing mild right hydronephrosis, which is new. The mass lesion measures 5.6 x 6.6 cm and is in continuity with the right gonadal vein and is suspic ious for either an ovarian metastatic lesion or a secondary primary malignancy of the right ovary, if the ovary is still present within the patient (history of hysterectomy and nonvisualization of the l eft adnexa). Alternatively, this could reflect pelvic lymphadenopathy. CODE T POS: [facility]
[2018-07-08] MEDS ORDERED: ISOVUE-370 76%-LOCM 1 ML ONE (13:16)
== END 2018-07-08 08:43 | disposition home or self-care (01) ==
LOC: BICCT 08:42
PROVIDERS: ATTEND Internal Medicine Medical Oncology
DX: C18.9 Malignant neoplasm of colon, unspecified (principal); N13.30 Unspecified hydronephrosis; C78.00 Secondary malignant neoplasm of unspecified lung; R19.00 Intra-abdominal and pelvic swelling, mass and lump, unspecified site; R91.8 Other nonspecific abnormal finding of lung field; K63.9 Disease of intestine, unspecified; Z90.710 Acquired absence of both cervix and uterus
CPT/HCPCS: 71260; 74177; Q9966

== ENCOUNTER 2018-07-24 06:35 | Inpatient (IN) | payer MEDICARE, MEDICAID ==
[2018-07-24] MEDS ORDERED: Ketorolac Tromethamine 30 MG/ML VIAL ONE (08:01)
[2018-07-24 08:18] LABS: #Basophils 0.1 thou/uL (0.0-0.2); #Eosinphils 0.2 thou/uL (0.0-0.7); #Lymphocytes 1.7 thou/uL (1.20-3.40); #Monocytes 0.5 thou/uL (0.11-0.59); #Neutrophils 6.9 thou/uL (1.40-6.50); %Basophils 0.7 % (0.0-1.0); %Eosinophils 1.7 % (0.0-10.0); %Lymphocytes 17.8 % (21.0-51.0); %Monocytes 5.6 % (0.0-10.0); %Neutrophils 74.2 % (42.0-75.0); Hemoglobin 13.4 g/dL (12.0-16.0); Mean Corpuscular HGB CONC 32.8 g/dL (32.0-36.0); Mean Platelet Volume 8.2 fL (7.4-10.4); Platelet Count 317 thou/uL (130-400); RBC Distribution Width 13.8 % (11.5-14.5); Red Blood Cell (RBC) Count 4.05 mill/uL (4.20-5.40); White Blood Cell (WBC) Count 9.3 thou/uL (4.8-10.8)
[2018-07-24 08:35] LABS: Anion Gap 14 mmol/L (10-20); BUN (Urea Nitrogen) 25 mg/dL (9.8-20.1); Calc. Creatinine Clearance 64 mL/min (70-130); Calcium 9.9 mg/dL (7.8-10.44); Carbon Dioxide 22 mmol/L (23-31); Chloride 108 mmol/L (98-107); Estimated GFR-MDRD 84; Glucose 99 mg/dL (83-110); Potassium 4.4 mmol/L (3.5-5.1); Sodium 140 mmol/L (136-145)
--- NOTE | 2018-07-24 09:24 | RAD ---
PORTABLE CHEST ONE VIEW: Date: 07-24-18 Time: 8:05 a.m. History: Pre-operative FINDINGS: The heart size is normal. The aorta is tortuous. The lungs are expanded without focal areas of consol idation, pneumothorax, or pleural effusions. No Mediport catheter is seen. IMPRESSION: No acute process. POS: [facility]
[2018-07-24] MEDS ORDERED: Bupivacaine HCl 0.5%/Epinephrine 1:200,000/PF 30 ml Vial ONE (10:00)
[2018-07-24] MEDS ORDERED: Lidocaine 2% PF 5 ML VIAL ONE (10:00)
[2018-07-24] MEDS ORDERED: Midazolam HCl 2 mg/2 ml Vial ONE (10:02)
[2018-07-24] MEDS ORDERED: Fentanyl 100 MCG/2 ML VIAL ONE ×3 (10:02→11:33)
[2018-07-24] MEDS ORDERED: Lidocaine 2% 11 ML SYR ONE (10:09)
[2018-07-24] MEDS ORDERED: Propofol 500 MG/50 ML VIAL ONE (10:35)
[2018-07-24] MEDS ORDERED: Nitroglycerin 0.4 MG TAB (25 Tab Bottle) ONE ×2 (11:42)
[2018-07-24] MEDS ORDERED: PROPOFOL 200 MG/20 ML VIAL ONE (13:30)
[2018-07-24] MEDS ORDERED: Ondansetron PF 4 MG/2 ML Vial ONE (13:30)
[2018-07-24] MEDS ORDERED: ePHEDrine 50 MG/ML VIAL ONE (13:30)
--- NOTE | 2018-07-24 13:48 | RAD ---
CHEST 1 VIEW: Date: 07/24/18 HISTORY: MediPort placement. COMPARISON: Radiograph same date. FINDINGS: Interval placement of a port catheter, tip at the mid SVC. No underlying pneumothorax. Cardiac silhouette and mediastinal contours are similar. IMPRESSION: Uncomplicated placement right-sided port catheter. POS: [facility]
[2018-07-24 13:51] VITALS: BMI 18.6
[2018-07-24 16:45] LABS: CKMB 0.9 ng/mL (0-6.6)
[2018-07-24] MEDS ORDERED: Aspirin Chewable 81 MG TAB PO SCH (17:15)
[2018-07-24] MEDS ORDERED: Sodium Chloride 0.9% 1,000 ML IV SCH (17:30)
[2018-07-24] MEDS ORDERED: Communication Order-Pharmacy FS SCH (17:30)
[2018-07-24] MEDS ORDERED: hydrALAZINE 20 MG/ML VIAL SLOW IVP PRN (17:58)
[2018-07-24] MEDS ORDERED: Nitroglycerin 0.4 MG TAB (25 Tab Bottle) SL PRN (17:58)
[2018-07-24] MEDS ORDERED: Ondansetron ODT 4 MG TAB PO PRN (17:58)
[2018-07-24] MEDS ORDERED: Ondansetron PF 4 MG/2 ML Vial IVP PRN (17:58)
[2018-07-24] MEDS ORDERED: cloNIDine 0.1 MG TAB PO PRN (17:58)
[2018-07-24 21:38] LABS: CKMB 0.9 ng/mL (0-6.6)
[2018-07-24] MEDS: Escitalopram Oxalate 10 mg Tablet PO SCH (21:43)
[2018-07-24] MEDS: Metoprolol Tartrate 25 MG TAB PO SCH (21:44)
[2018-07-24] MEDS: Acetaminophen 500 MG TAB PO PRN (21:44)
--- NOTE | 2018-07-24 23:17 | PDOC.OP ---
Operative Note - Operative Note Operative Note: PROCEDURE: Right internal jugular MediPort placement with ultrasound and fluoroscopic guidance SURGEON: Valdo Gore M.D. DATE OF PROCEDURE: 07/24/2018 PREOPERATIVE DIAGNOSIS: Metastatic colon cancer POSTOPERATIVE DIAGNOSIS: Metastatic colon cancer HISTORY: Patient is diagnosed with metastatic colon cancer. The patient has decided to proceed with chemotherapy and the oncologist has requested MediPort placement for this. OPERATIVE PROCEDURE IN DETAIL: After informed consent was obtained and appropriate preoperative antibiotics were administered, the patient was taken to the operating room and placed in supine position and monitored anesthesia care was administered. The patient was then placed in Trendelenburg position and the patent compressible right internal jugular vein accessed easily under ultrasound guidance on the first attempt with excellent flow of dark venous non- pulsatile blood. A wire threaded easily and was confirmed to be in the superior vena cava by fluoroscopy. Additional local anesthesia was infused to the skin and subcutaneous tissues of the right chest and neck. The skin incision was made and a subcutaneous pocket developed inferiorly. A Mediport was obtained and confirmed to fit in the subcutaneous pocket. This was secured inferiorly to the pectoralis fascia with a Prolene suture, which was clamped, but not tied. The Mediport tubing was then tunneled from this incision to the right IJ access site. The dilator and sheath were then placed over the wire and the dilator and wire removed leaving the sheath in place. The clamped MediPort tubing was tunneled through the sheath, which was then split and removed leaving the MediPort tubing in place. The tubing was adjusted until the tip was confirmed by fluoroscopy to be in the superior vena cava just above the atrium. The tubing was clamped at the chest incision level and cut and the tubing secured to the port, which was then placed in the subcutaneous pocket. The previously placed suture was secured and two additional sutures were placed to fix the port in place within the pocket. The port was aspirated with the Carl needle and had excellent flow of dark venous non-pulsatile blood and easily flushed without resistance. The subcutaneous tissues were closed with a running Monocryl suture, following which the skin was closed with a running subcuticular Monocryl suture. Dermabond dressings were placed and the hub was again accessed through the skin and confirmed to easily aspirate and easily flush. The course of the catheter was confirmed by fluoroscopy to be smooth with the tip appropriately located in the superior vena cava. The patient was taken her back to the day stay unit in good condition. Estimated blood loss was minimal. There were no complications. There were no specimens.
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
[2018-07-25 04:46] LABS: Cardiac Risk 5.3 (Less than 4.5)
[2018-07-25] MEDS: Sodium Chloride 0.9% 1,000 ML IV SCH ×2 (06:07→15:07)
[2018-07-25] MEDS: Amlodipine 5 MG TAB PO SCH (06:08)
[2018-07-25] MEDS: Aspirin 81 mg Enteric Coated Tablet PO SCH (06:10)
[2018-07-25] MEDS: Metoprolol Tartrate 25 MG TAB PO SCH ×2 (06:10→21:16)
[2018-07-25] MEDS: Multivitamin W/ Minerals 1 TAB PO SCH (06:10)
[2018-07-25] MEDS: Acetaminophen 500 MG TAB PO PRN ×2 (06:10→15:09)
[2018-07-25] MEDS ORDERED: Heparin 10,000 UNITS/1 ML VIAL ONE (06:39)
[2018-07-25] MEDS ORDERED: Midazolam HCl 2 mg/2 ml Vial ONE (07:13)
[2018-07-25] MEDS ORDERED: Fentanyl 100 MCG/2 ML VIAL ONE (07:14)
[2018-07-25] MEDS ORDERED: Bivalirudin 250 MG VIAL ONE (07:35)
[2018-07-25] MEDS ORDERED: Nitroglycerin 100MG/250ML BOT 250 ML ONE (07:39)
[2018-07-25] MEDS ORDERED: Clopidogrel Bisulfate 300 MG TAB ONE ×2 (07:39→08:44)
[2018-07-25] MEDS: Polyethylene Glycol 3350 17 GM Packet PO SCH (07:59)
[2018-07-25] MEDS ORDERED: Sodium Chloride 0.9% 1,000 ML IV SCH (09:00)
[2018-07-25] MEDS ORDERED: Potassium [Potassium] 99 MG TAB PO SCH (09:00)
[2018-07-25] MEDS ORDERED: Amlodipine 5 MG TAB PO SCH (09:00)
[2018-07-25] MEDS ORDERED: Morphine 2 MG/ML SYRINGE SLOW IVP PRN (09:11)
[2018-07-25] MEDS ORDERED: Iopamidol 370 76% 50 ML VIAL FS ONE (10:19)
[2018-07-25] MEDS ORDERED: Iopamidol 370 76% 100 ML VIAL ONE (10:19)
--- NOTE | 2018-07-25 13:34 | CCL ---
CARDIAC CATHETERIZATION REPORT: Date: 07/25/18 PROCEDURE: Left heart catheterization, selective arteriography, left ventriculography, intracoronary nitroglycer in, bare metal stent placement in the proximal and mid LAD. INDICATION: Non-STEMI. DESCRIPTION OF PROCEDURE: The patient was brought to the cardiac research lab assistant and the right groin was prepped and draped in the usu al fashion. 1% lidocaine was infiltrated. A 6 Chinese sheath was placed into the right femoral artery and heparin 3,000 units given. A 6 Chinese angulated pigtail was inserted and pressures were obtained. Left ventriculogram was performed using 30 ml of contrast at 12 ml/s in a CATALAN 30 degree projection. Pressures were obtained and the pigtail was removed. A 6 Chinese Michael left-4 followed by a 6 Chinese Michael right-4 was used for coronary arteriography. During the procedure, the patient received Versed 1 mg and Fentanyl 25 mg IV x3 for conscious sedatio n and pain relief, while being constantly monitored. A 6 Chinese left-5 guide catheter was inserted. There was very short, almost nonexistent left main. Tw o floppy Choice wires were advanced into the LAD - one into the first diagonal and one into the dista l LAD. Emerge 2.5 x 15 mm balloon was used to predilate the two lesions in the mid LAD and the proxim al lesion. Rebel 2.5 x 28 mm stent was then positioned in the mid LAD. There was moderate difficulty in advancing this, but this was positioned and then deployed. Another Rebel 2.5 x 12 mm was positione d proximal to this and crossing the takeoff of the first diagonal. This was deployed. Rebel 3.0 x 20 mm stent was then placed in the proximal LAD. The last stent was not overlapping the previous two. In tracoronary nitroglycerin 200 mcg was given. During the procedure, the patient received Angiomax bolu s and drip, as well as Plavix 600 mg PO. Final result was excellent. Sheath was sutured in place and she was transferred to the PACU. RESULTS: PRESSURES: Aorta 171/57, mean of 98 Left Ventricle 171/9 LEFT VENTRICULOGRAM: There was mild anterior and inferior hypokinesis with ejection fraction of 40-45%. CORONARY ARTERIOGRAPHY: 1. The left main was short. 2. The LAD had a 70% proximal stenosis, and a 90% and 70% mid stenosis. 3. The circumflex had a 20% mid stenosis. 4. The right coronary artery had a 70% and 90% mid stenosis, and was totally occluded in the mid to distal area. The distal right coronary artery filled retrograde from the left. INTERVENTION RESULTS: 1. Initial mid LAD lesions were 70% and 90%. Both lesions were 0% afterwards. 2. Initial proximal LAD lesion was 70%; final lesion was 0%. IMPRESSION: 1. Two vessel coronary artery disease (RCA and LAD). 2. Mild left ventricular dysfunction. 3. Successful bare metal stent placement in the proximal and mid LAD.
--- NOTE | 2018-07-25 17:22 | PDOC.PN ---
- Subjective Encounter Start Date: 07/25/18 Encounter Start Time: 17:00 Subjective: f/u NSTEMI s/p PCI with 3 BMS to mid/prox LAD. No current c/o CP -: or SOB. Feels ok overall. - Objective Resuscitation Status - Order Detail: 07/25/18 17:11 Resuscitation Status Routine Resuscitation Status: FULL: Full Resuscitation MAR Reviewed: Yes Vital Signs & Weight: Vital Signs (12 hours) Temp Pulse Resp BP BP Pulse Ox 07/25/18 16:49 56 L 18 126/62 99 07/25/18 15:51 98.3 F 58 L 16 170/76 H 98 07/25/18 15:07 179/77 H 07/25/18 14:46 98.2 F 56 L 16 171/77 H 98 07/25/18 06:08 56 L 179/77 H Weight Admit Weight 122 lb Weight 126 lb 6.4 oz I&O: 07/24/18 07/25/18 07/26/18 06:59 06:59 06:59 Intake Total 960 550 Output Total 950 250 Balance 10 300 Result Diagrams: 07/24/18 08:02 07/24/18 08:02 Additional Labs: Laboratory Tests 07/24/18 07/24/18 07/24/18 12:08 15:48 20:30 Troponin I Less than 0.010 0.055 H 0.042 H Triglycerides Cholesterol LDL Cholesterol, Calc HDL Cholesterol 07/25/18 04:18 Troponin I Triglycerides 149 Cholesterol 216 H LDL Cholesterol, Calc 145 HDL Cholesterol 41 EKG Reviewed by me: Yes (Tele - SR) Phys Exam - Physical Examination Constitutional: NAD HEENT: PERRLA, sclera anicteric, oral pharynx no lesions Neck: no nodes, no JVD, supple, full ROM Respiratory: no wheezing, no rales, no rhonchi, clear to auscultation bilateral S1, S2 Cardiovascular: RRR, no significant murmur, no rub, gallop Gastrointestinal: soft, non-tender, no distention, positive bowel sounds Musculoskeletal: no edema, pulses present Neurological: normal sensation, moves all 4 limbs Psychiatric: A&O x 3 Skin: normal turgor, cap refill <2 seconds Dx/Plan (1) NSTEMI (non-ST elevated myocardial infarction) Code(s): I21.4 - NON-ST ELEVATION (NSTEMI) MYOCARDIAL INFARCTION Status: Acute Comment: Continue ASA, Plavix and Lipitor, s/p PCI with BMS x 3 (2) 2-vessel coronary artery disease Code(s): I25.10 - ATHSCL HEART DISEASE OF [place] CORONARY ARTERY W/O ANG PCTRS Status: Chronic Comment: See above (3) Colon cancer Code(s): C18.9 - MALIGNANT NEOPLASM OF COLON, UNSPECIFIED Status: Chronic Comment: Metastatic colon ca near end-stage, plan for chemotx as outpt, s/p R- sided Mediport placement (4) Tobacco dependence Code(s): F17.200 - NICOTINE DEPENDENCE, UNSPECIFIED, UNCOMPLICATED Status: Chronic Comment: Tobacco cessation resources - Plan out of bed/ambulate, DVT proph w/SCDs Stable overall -: Continue dual anti-platelet therapy -: Lipitor/Metoprolol -: Tobacco cessation resources -: AM lab: CMP, CBC * Likely home in 24h
[2018-07-25] MEDS ORDERED: Atorvastatin Calcium 40 MG TAB PO SCH (21:00)
[2018-07-25] MEDS: Escitalopram Oxalate 10 mg Tablet PO SCH (21:16)
[2018-07-26] MEDS: Sodium Chloride 0.9% 1,000 ML IV SCH ×2 (04:10→10:38)
[2018-07-26] MEDS: Amlodipine 5 MG TAB PO SCH (08:00)
[2018-07-26] MEDS: Multivitamin W/ Minerals 1 TAB PO SCH (08:00)
[2018-07-26] MEDS: Polyethylene Glycol 3350 17 GM Packet PO SCH (08:00)
[2018-07-26] MEDS: Metoprolol Tartrate 25 MG TAB PO SCH (08:00)
[2018-07-26] MEDS: Aspirin 81 mg Enteric Coated Tablet PO SCH (08:01)
[2018-07-26 08:56] VITALS: TEMP 98.5
[2018-07-26] MEDS ORDERED: Clopidogrel Bisulfate 75 MG TAB PO SCH (09:00)
[2018-07-26] MEDS ORDERED: Aspirin Chewable 81 MG TAB PO SCH (09:00)
--- NOTE | 2018-07-26 09:23 | PDOC.CTH ---
Cardiology Progress Note - Subjective The pt seen and examined. No overnight events. No cardiac complaints. The Rt fem site without hematoma or drainage, and soft to touch. - Objective Vital Signs Temp Pulse Resp BP Pulse Ox 07/26/18 08:00 98.5 F 70 18 156/70 H 96 07/26/18 04:00 60 18 155/68 H 98 07/25/18 23:31 98.0 F 61 18 139/62 96 Admit Weight 122 lb Weight 126 lb 6.4 oz 07/25/18 07/26/18 07/27/18 06:59 06:59 06:59 Intake Total 960 550 Output Total 950 250 Balance 10 300 - Physical Examination General/Neuro: alert & oriented x3 Neck: no JVD present Lungs: CTA Heart: RRR Extremities: other: (No edema) - Telemetry Telemetry Rhythm: SB 57 - Labs Result Diagrams: 07/24/18 08:02 07/24/18 08:02 Troponin/CKMB CK-MB (CK-2) 0.9 ng/mL (0-6.6) 07/24/18 20:30 Troponin I 0.042 ng/mL (< 0.028) H 07/24/18 20:30 - Assessment/Plan 1. 2V CAD (LAD and RCA) with s/p PCI with BMS x3 to prox and dis LAD - On BBlocker, Plavix and ASA 2. Colon cancer with s/p Rt sided Mediport placement 3. Current smoker - smoking cessation education given to the pt. MAR reviewed * From Cardiac standpoint, the pt is stable to d/c home. The pt will f/u with Dr Fitch's office within 2wks. Review of Systems - Review of Systems Constitutional: reports: no symptoms reported EENTM: reports: no symptoms reported Respiratory: reports: no symptoms reported Cardiac (ROS): reports: no symptoms reported ABD/GI: reports: no symptoms reported : reports: no symptoms reported Musculoskeletal: reports: no symptoms reported
[2018-07-26 10:10] LABS: #Basophils 0.1 thou/uL (0.0-0.2); #Eosinphils 0.2 thou/uL (0.0-0.7); #Lymphocytes 1.6 thou/uL (1.20-3.40); #Monocytes 0.4 thou/uL (0.11-0.59); #Neutrophils 5.5 thou/uL (1.40-6.50); %Basophils 0.8 % (0.0-1.0); %Eosinophils 2.6 % (0.0-10.0); %Lymphocytes 20.2 % (21.0-51.0); %Monocytes 5.4 % (0.0-10.0); Hemoglobin 11.6 g/dL (12.0-16.0); Mean Corpuscular Volume 99.9 fL (78.0-98.0); Mean Platelet Volume 8.1 fL (7.4-10.4); Platelet Count 291 thou/uL (130-400); RBC Distribution Width 13.2 % (11.5-14.5); White Blood Cell (WBC) Count 7.8 thou/uL (4.8-10.8)
[2018-07-26 10:33] LABS: ALT (SGPT) Less than 7 U/L (8-55); AST (SGOT) 18 U/L (5-34); Albumin 3.3 g/dL (3.4-4.8); Alkaline Phosphatase 65 U/L (40-150); Anion Gap 12 mmol/L (10-20); BUN (Urea Nitrogen) 14 mg/dL (9.8-20.1); Bilirubin, Total 0.5 mg/dL (0.2-1.2); Calc. Creatinine Clearance 71 mL/min (70-130); Carbon Dioxide 23 mmol/L (23-31); Chloride 107 mmol/L (98-107); Estimated GFR-MDRD 90; Globulin 2.6 g/dL (2.4-3.5); Glucose 106 mg/dL (83-110); Potassium 4.2 mmol/L (3.5-5.1); Protein, Total 5.9 g/dL (6.0-8.3); Sodium 138 mmol/L (136-145)
[2018-07-26 13:22] VITALS: BP 137/61
--- NOTE | 2018-07-26 14:57 | DIS ---
DATE OF ADMISSION: 07/24/2018 DATE OF DISCHARGE: 07/26/2018 PRIMARY CARE PROVIDER: Dr. Naya Ho. DISCHARGE DIAGNOSES: 1. Non-ST elevation myocardial infarction. 2. Two-vessel coronary artery disease, status post percutaneous coronary intervention with bare-metal stent placement x3 to the left anterior descending artery. 3. Metastatic colon cancer, status post right-sided MediPort placement. 4. Tobacco abuse. 5. Hypertension. 6. Hyperlipidemia. CONSULTATIONS: 1. Darien Fowler MD with Cardiology Service. 2. Valdo Gore MD with General Surgery Service. PERTINENT LAB AND X-RAY FINDINGS: Basic metabolic profile within normal limits. Troponin I ranged between 0.010 to 0.055. Total cholesterol 216, triglycerides 149, HDL 41, and LDL 145. CBC showed a hemoglobin ranging between 11.6 to 13.4. Left heart catheterization dated 07/25/2018 showed 2-vessel coronary artery disease involving the LAD and RCA. Bare-metal stent placement to the proximal and mid left anterior descending artery. Please see dictated report for full details. HOSPITAL COURSE: The patient was initially evaluated due to chest pain with mild elevated troponin I with concern for non-ST elevation myocardial infarction. The patient had undergone right MediPort placement in preparation for chemotherapy due to metastatic colon cancer. Postoperatively, after the MediPort was placed, the patient developed severe angina with evidence for non-ST elevation myocardial infarction. The patient was evaluated by the Cardiology Service, undergoing left heart catheterization on 07/25/2018 showing severe 2-vessel coronary artery disease with successful percutaneous coronary intervention with 3 stents placed in the mid and proximal LAD. The patient was monitored postoperatively without acute arrhythmia or dysrhythmia noted on telemetry monitoring. The patient was initiated on beta-sam therapy, dual antiplatelet therapy with aspirin and Plavix as well as Lipitor. The patient remained clinically stable postoperatively and stable vital signs were noted. I have examined the patient at the time of discharge and discussed followup instructions. The patient verbalized understanding and in agreement, ready for discharge on 07/26/2018. DISCHARGE MEDICATIONS: 1. Metoprolol 25 mg p.o. b.i.d. 2. Plavix 75 mg p.o. daily. 3. Lipitor 40 mg p.o. at bedtime. 4. Enteric-coated aspirin 81 mg p.o. daily. 5. Potassium 99 mg 1 tablet p.o. daily. 6. Omeprazole 40 mg p.o. daily. 7. Lexapro 10 mg p.o. at bedtime. FOLLOWUP: The patient to follow up with her primary care provider, Dr. Naya Ho in 7 days. The patient will follow up with Dr. Darien Fowler in [facility] within 2 weeks. The patient will follow up with her primary oncologist, Dr. Mitchell. CONDITION ON DISCHARGE: Fair. ACTIVITY: Ad-tru. DIET: Heart healthy. CODE STATUS: Full. DISPOSITION: Home on 07/26/2018. TIME SPENT: Total time preparing and coordinating discharge is 32 minutes. Job ID: [id number]
== END 2018-07-26 12:11 | disposition home or self-care (01) | DRG 249 ==
LOC: SDC 06:35 → 2SW 12:20 → OBSVTOIN 12:20
PROVIDERS: ADMIT Surgery; ATTEND Surgery
PROC: 02HV33Z Insertion of Infusion Device into Superior Vena Cava, Percutaneous Approach (ICD-10-PCS; 2018-07-24)
PROC: B5181ZA Fluoroscopy of Superior Vena Cava using Low Osmolar Contrast, Guidance (ICD-10-PCS; 2018-07-24)
PROC: 02703DZ Dilation of Coronary Artery, One Artery with Intraluminal Device, Percutaneous Approach (ICD-10-PCS; principal; 2018-07-25)
PROC: 4A023N7 Measurement of Cardiac Sampling and Pressure, Left Heart, Percutaneous Approach (ICD-10-PCS; 2018-07-25)
PROC: B2111ZZ Fluoroscopy of Multiple Coronary Arteries using Low Osmolar Contrast (ICD-10-PCS; 2018-07-25)
PROC: B2151ZZ Fluoroscopy of Left Heart using Low Osmolar Contrast (ICD-10-PCS; 2018-07-25)
DX: I21.4 Non-ST elevation (NSTEMI) myocardial infarction (principal); C18.9 Malignant neoplasm of colon, unspecified; N13.30 Unspecified hydronephrosis; I10 Essential (primary) hypertension; K21.9 Gastro-esophageal reflux disease without esophagitis; F32.9 Major depressive disorder, single episode, unspecified; F17.200 Nicotine dependence, unspecified, uncomplicated; E78.5 Hyperlipidemia, unspecified
CPT/HCPCS: 36415; 71045; 80048; 80053; 80061; 82553; 84484; 85025; 85347; 92928; 93005; 93010; 93458; 93798; 99152; 99153; C1725; C1769; C1788; C1876; C1887; J0131; J0583; J0670; J1642; J1644; J1885; J2001; J2250; J2405; J2704; J3010; J3490; Q0162; Q9967

== ENCOUNTER 2018-10-02 07:53 | Outpatient (CLI) | payer MEDICARE, MEDICAID ==
--- NOTE | 2018-10-02 09:10 | CT ---
CT OF THE CHEST, ABDOMEN AND PELVIS WITH IV CONTRAST INDICATION: History of colon cancer COMPARISON: Prior CT of the chest, abdomen and pelvis dated July 08, 2018, CT the abdomen and pelv is dated January 18, 2018, CT abdomen and pelvis dated 08/04/2014, December 11, 2014 and December 15, 2014. FINDINGS: CHEST: Lungs:The scattered pulmonary metastatic disease, some of which is cavitated, has increased in number and size from the most recent examination dated July 08, 2018. The index nodule within the posterior lateral right lower lobe now measures 1.3 cm on image 43 of series 3 where as on the most p revious exam the nodule measured 1 cm. The largest nodule within the left lung is seen within the left lower lobe measuring 9 mm on image 49 of series 3 where previously it measured 4 mm. Heart and great vessels:There are scattered coronary artery calcifications. Small pericardial effusio n is stable. Pleural space: No pneumothorax or effusion. Additional findings: ABDOMEN: Liver:No focal hepatic lesion. Spleen:Normal appearing. Pancreas:Normal appearing. Adrenal Glands:Normal appearing. Kidneys:There is stable moderate to severe right-sided hydronephrosis and hydroureter which transitio ns to a large right pelvic mass. There are small bilateral renal cysts. Aorta:There is moderate to severe calcification involving the abdominal aorta. Additional findings: Peritoneal carcinomatosis has increased in prominence. The largest mesenteric m ass now measures 3.3 cm within the upper central abdomen on image 87 of series 2; previously it measured 2.7 cm. An additional nodule adjacent to the SMA and SMV on image 80 of series 2 now measure s 1.3 cm where previously it measured 1 cm. There are other areas of punctate nodularity involving the omentum of the right upper quadrant which were not present on the prior exam. Pelvis: Bowel:Postsurgical changes of a partial colectomy and anastomosis of the colorectal junction is again noted. Bladder:Partially decompressed. Reproductive structures:The uterus and adnexa are likely surgically absent. Rectum and perirectal soft tissues:Normal appearing. Additional findings: Right-sided pelvic mass has increased in size now measuring 8 x 6.2 cm on image 114 of series 2. This is inducing moderate to severe right-sided hydronephrosis. Osseous structures: There is healed deformity involving the right pubic body and right obturator ring. There is diffuse o steopenia. No suspicious osteolytic or osteoblastic lesion is identified. There is scattered degenerative and osteoarthritic changes. IMPRESSION: 1. Worsening metastatic disease. There is worsening pulmonary metastatic disease, worsening peritonea l carcinomatosis and worsening enlargement of the large right-sided pelvic mass inducing stable moderate to severe right-sided hydronephrosis.
[2018-10-02] MEDS ORDERED: ISOVUE-370 76%-LOCM 1 ML ONE (11:12)
== END 2018-10-02 07:54 | disposition home or self-care (01) ==
LOC: BICCT 07:53
PROVIDERS: ATTEND Internal Medicine Medical Oncology
DX: C18.9 Malignant neoplasm of colon, unspecified (principal); C78.00 Secondary malignant neoplasm of unspecified lung; C78.6 Secondary malignant neoplasm of retroperitoneum and peritoneum; N13.30 Unspecified hydronephrosis; R19.09 Other intra-abdominal and pelvic swelling, mass and lump
CPT/HCPCS: 71260; 74177; 82565; Q9966

== ENCOUNTER 2018-10-15 08:18 | Day surgery (SDC) | payer MEDICARE, MEDICAID ==
[~2018-10-15 08:18] MED LIST changes: +BEVACIZUMAB IVPB SCH; -ISOVUE-370 76%-LOCM 1 ML ONE; -Iopamidol 370 76% 50 ML VIAL FS ONE; +Leucovorin Calcium 50 MG in Dextrose 5% in Water 50 ML IVPB SCH; +Ondansetron 2MG/ML MDV 15 MG, Dexamethasone Sod Phosphate 10 MG in Sodium Chloride 0.9%... IVP SCH; +Oxaliplatin 170 MG in Dextrose 5% in Water 500 ML IVPB SCH; +SODIUM CHLORIDE 0.9% IVPB SCH
[2018-10-15] MEDS ORDERED: Sodium Chloride 0.9% 20 ML ONE (08:54)
[2018-10-15 09:58] VITALS: BP 117/62; TEMP 97.7
== END 2018-10-15 13:26 | disposition home or self-care (01) ==
LOC: ONC/OP 08:18
PROVIDERS: ATTEND Internal Medicine Medical Oncology
DX: Z51.11 Encounter for antineoplastic chemotherapy (principal); C18.1 Malignant neoplasm of appendix; Z88.6 Allergy status to analgesic agent
CPT/HCPCS: 96366; 96375; 96413; 96415; 96417; J0640; J1100; J2405; J3490; J7050; J7070; J9035; J9263

== ENCOUNTER 2018-10-29 08:30 | Day surgery (SDC) | payer MEDICARE, MEDICAID ==
[2018-10-29 08:56] VITALS: BP 120/61; TEMP 97.6
[2018-10-29] MEDS ORDERED: Sodium Chloride 0.9% 20 ML ONE (09:44)
== END 2018-10-29 14:01 | disposition home or self-care (01) ==
LOC: ONC/OP 08:30
PROVIDERS: ATTEND Internal Medicine Medical Oncology
DX: Z51.11 Encounter for antineoplastic chemotherapy (principal); C18.1 Malignant neoplasm of appendix; Z88.5 Allergy status to narcotic agent; Z88.6 Allergy status to analgesic agent
CPT/HCPCS: 96367; 96375; 96413; 96415; 96417; J0640; J1100; J2405; J3490; J7050; J7070; J9035; J9263